=== PATIENT | female | born 1995 | race Caucasian/White ===

== ENCOUNTER 2021-02-21 10:48 | Outpatient (REF) | payer MEDICAID, SELFPAY | END 2021-02-21 10:49 | disposition home or self-care (01) | LOC: HO.HOSX 10:48 | PROVIDERS: Visit Provider Orthopaedic Surgery | DX: Z13.89 Encounter for screening for other disorder (principal) ==

== ENCOUNTER 2021-02-24 02:10 | Inpatient (IN) | payer OTHER, SELFPAY ==
[2021-02-24 02:18] VITALS: BP 103/66; PULSE 98; RESP 16; TEMP 36.3; O2SAT 99; BMI 23.6
[2021-02-24 02:43] VITALS: BP 103/66; PULSE 98; RESP 16; TEMP 36.3; O2SAT 99
[2021-02-24] MEDS: LORazepam 1 MG TABLET PO ×3 (03:05→21:34)
--- NOTE | 2021-02-24 03:08 | PC.NURSE ---
Patient reluctantly disclosed her pharmacy name but stated she doesn't take her medication, requested Ativan for anxiety, provider notified/ordered verbal order of Ativan 1 mg PO/order read back and confirmed/administered as ordered, patient appears dysregulated behavior perhaps off medication, will continue to monitor.
[2021-02-24 03:15] LABS: Glucose Urine UA NEG (NEG); Leukocyte Esterase Urine NEG (NEG); Nitrite Urine NEG (NEG); PH 6.5 (5.0-8.0); Specific Gravity - Urine 1.025 (1.005-1.025); Urine Blood NEG (NEG); Urine Ketones NEG (NEG); Urine Protein NEG (NEG-TRACE)
[2021-02-24 03:23] LABS: Appearance Urine HAZY; COVID-19 Test Negative (Negative); Color Urine YELLOW
[2021-02-24 03:24] LABS: UPreg QC Valid YES; Urine Pregnancy NEGATIVE (NEGATIVE)
[2021-02-24 03:49] LABS: Amphetamine Screen Urine Not Detected (Not Detect); Barbiturates, Urine Not Detected (Not Detect); Benzodiazepines Screen Urine Not Detected (Not Detect); Cannabinoid Screen Urine Not Detected (Not Detect); Cocaine Screen Urine Not Detected (Not Detect); Opiate Screen Urine Not Detected (Not Detect); Phencyclidine Screen Urine Not Detected (Not Detect)
[2021-02-24 04:43] LABS: Bacteria Urine 1+ /LPF; Mucus Urine 3+ /LPF; RBC Urine 0 /HPF (0); Squamous Epithelial Cell Urine 1+ /LPF
--- NOTE | 2021-02-24 04:59 | ED_ITS ---
HPI - Psych General Chief Complaint: Psychiatric Symptoms Stated Complaint: crisis Time Seen by Provider: 02/24/21 04:59 Related Data Home Medications Medication Instructions Recorded Confirmed chlorpromazine 1 tab PO BEDTIME 02/24/21 02/24/21 chlorpromazine 50 mg PO BID 02/24/21 02/24/21 diphenhydramine HCl [Banophen] 50 mg PO BEDTIME 02/24/21 02/24/21 lithium carbonate 1 tab PO BID 02/24/21 02/24/21 melatonin 1 tab PO BEDTIME 02/24/21 02/24/21 quetiapine 1 tab PO BEDTIME 02/24/21 02/24/21 quetiapine 1 tab PO BID 02/24/21 02/24/21 topiramate 1 tab PO BEDTIME 02/24/21 02/24/21 trazodone 1 tab PO BEDTIME 02/24/21 02/24/21 Allergies Allergy/AdvReac Type Severity Reaction Status Date / Time oxycodone [OXYCODONE] Allergy Severe SEIZURES Unverified 08/02/20 19:22 [facility] Social History Social History Advance Directives: No Physical Exam Vital Signs: Vital Signs: Last Vital Signs Temp 97.4 F 02/24/21 02:43 Pulse 98 02/24/21 02:43 Resp 16 02/24/21 02:43 BP 103/66 02/24/21 02:43 Pulse Ox 99 02/24/21 02:43 Body Mass Index 23.6 MDM - Psych Lab Data Labs: Lab Results 02/24/21 02/24/21 02/24/21 Range/Units 02:52 02:52 02:52 Urine Color YELLOW Urine Appearance HAZY Urine pH 6.5 (5.0-8.0) Ur Specific [place] 1.025 (1.005-1.025) Urine Protein NEG (NEG-TRACE) MG/DL Urine Glucose (UA) NEG (NEG) MG/DL Urine Ketones NEG (NEG) MG/DL Urine Blood NEG (NEG) Urine Nitrite NEG (NEG) Ur Leukocyte Esterase NEG (NEG) Urine RBC 0 (0) /HPF Urine WBC 1-4 (0-4) /HPF Ur Squamous Epith Cells 1+ /LPF Urine Bacteria 1+ /LPF Urine Mucus 3+ /LPF Urine Test NEGATIVE (NEGATIVE) Urine Opiates Screen (Not Detect) Ur Barbiturates Screen (Not Detect) Ur Phencyclidine Scrn (Not Detect) Ur Amphetamines Screen (Not Detect) U Benzodiazepines Scrn (Not Detect) Urine Cocaine Screen (Not Detect) U Marijuana (THC) Screen (Not Detect) COVID-19 (VENUS) Negative (Negative) COVID-19 Clin Com See Note 02/24/21 Range/Units 02:52 Urine Color Urine Appearance Urine pH (5.0-8.0) Ur Specific [place] (1.005-1.025) Urine Protein (NEG-TRACE) MG/DL Urine Glucose (UA) (NEG) MG/DL Urine Ketones (NEG) MG/DL Urine Blood (NEG) Urine Nitrite (NEG) Ur Leukocyte Esterase (NEG) Urine RBC (0) /HPF Urine WBC (0-4) /HPF Ur Squamous Epith Cells /LPF Urine Bacteria /LPF Urine Mucus /LPF Urine Test (NEGATIVE) Urine Opiates Screen Not Detected (Not Detect) Ur Barbiturates Screen Not Detected (Not Detect) Ur Phencyclidine Scrn Not Detected (Not Detect) Ur Amphetamines Screen Not Detected (Not Detect) U Benzodiazepines Scrn Not Detected (Not Detect) Urine Cocaine Screen Not Detected (Not Detect) U Marijuana (THC) Screen Not Detected (Not Detect) COVID-19 (VENUS) (Negative) COVID-19 Clin Com Discharge Plan Discharge Prescriptions: No Action diphenhydramine HCl [Banophen] 50 mg capsule 50 mg PO BEDTIME RF: 0 trazodone 50 mg tablet 1 tab PO BEDTIME RF: 0 chlorpromazine 100 mg tablet 1 tab PO BEDTIME RF: 0 melatonin 3 mg tablet 1 tab PO BEDTIME RF: 0 quetiapine 100 mg tablet 1 tab PO BEDTIME RF: 0 lithium carbonate 300 mg tablet 1 tab PO BID RF: 0 chlorpromazine 50 mg tablet 50 mg PO BID RF: 0 topiramate 50 mg tablet 1 tab PO BEDTIME RF: 0 quetiapine 50 mg tablet 1 tab PO BID RF: 0
--- NOTE | 2021-02-24 06:33 | ED_ITS ---
HPI - General Adult General Chief complaint: Psychiatric Symptoms <Kash Tucker MD - Last Filed: 02/24/21 15:53> Stated complaint: crisis <Kash Tucker MD - Last Filed: 02/24/21 15:53> Time Seen by Provider: 02/24/21 04:59 <Kash Tucker MD - Last Filed: 02/24/21 15:53> Source: patient and EMS <Kash Tucker MD - Last Filed: 02/24/21 15:53> Mode of arrival: EMS <Kash Tucker MD - Last Filed: 02/24/21 15:53> Limitations: no limitations <Kash Tucker MD - Last Filed: 02/24/21 15:53> History of Present Illness HPI narrative: 25-year-old female who was brought to the emergency department by EMS for psychiatric evaluation. According to EMS, the patient is well known to them and they are contacted often by the mother when the mother believes that the patient is noncompliant with her medications in leads Behavioral Health/psychiatric evaluation. According to EMS that initially take the patient to [facility] however patient wanted to come to this facility instead. The mother believes that the patient has been noncompliant with her medications. When the patient arrived, she refused to take her outpatient medications but did request Ativan to help with her anxiety. She did report that she is suicidal to the ED who nursing staff but denies that she has a plan. She denied being ill in any other way. She denied fever, chills, chest pain, shortness of breath, cough, nausea, vomiting, abdominal pain. <Kash Tucker MD - Last Filed: 02/24/21 15:53> Related Data Home medications: Home Medications Medication Instructions Recorded Confirmed albuterol sulfate [ProAir HFA] 2 puff PO Q4-6H PRN 02/24/21 02/24/21 chlorpromazine 1 tab PO BEDTIME 02/24/21 02/24/21 chlorpromazine 50 mg PO BID 02/24/21 02/24/21 diphenhydramine HCl [Banophen] 50 mg PO BEDTIME 02/24/21 02/24/21 lithium carbonate 1 tab PO BID 02/24/21 02/24/21 melatonin 1 tab PO BEDTIME 02/24/21 02/24/21 quetiapine 1 tab PO BEDTIME 02/24/21 02/24/21 quetiapine 1 tab PO BID 02/24/21 02/24/21 topiramate 1 tab PO BEDTIME 02/24/21 02/24/21 trazodone 1 tab PO BEDTIME 02/24/21 02/24/21 <Kash Tucker MD - Last Filed: 02/24/21 15:53> Allergies/adverse reactions: Allergies Allergy/AdvReac Type Severity Reaction Status Date / Time oxycodone [OXYCODONE] Allergy Severe SEIZURES Unverified 08/02/20 19:22 <Kash Tucker MD - Last Filed: 02/24/21 15:53> Review of Systems Review of Systems: Yes all other systems are reviewed and are negative <Kash Tucker MD - Last Filed: 02/24/21 15:53> [facility] Past Medical History [facility] Narrative: Patient has a history of psychiatric illness, she lives with her mother, she denies tobacco, alcohol and drug use. <Kash Tucker MD - Last Filed: 02/24/21 15:53> Social History Social History: Social History Advance Directives: No <Kash Tucker MD - Last Filed: 02/24/21 15:53> Physical Exam Vital Signs: Vital Signs: Last Vital Signs Temp 98.3 F 02/24/21 08:50 Pulse 97 02/24/21 08:50 Resp 02/24/21 14:00 BP 99/55 L 02/24/21 08:50 Pulse Ox 98 02/24/21 08:50 Body Mass Index 23.6 <Kash Tucker MD - Last Filed: 02/24/21 15:53> Vital Signs: Last Vital Signs Temp 98.3 F 02/24/21 08:50 Pulse 97 02/24/21 08:50 Resp 02/24/21 14:00 BP 99/55 L 02/24/21 08:50 Pulse Ox 98 02/24/21 08:50 Body Mass Index 23.6 <MICHELE Grover - Last Filed: 02/24/21 10:43> Const: General: cooperative <Kash Tucker MD - Last Filed: 02/24/21 15:53> Orientation/consciousness: oriented to person and oriented to place <Kash Tucker MD - Last Filed: 02/24/21 15:53> Limitations: no limitations <Kash Tucker MD - Last Filed: 02/24/21 15:53> HENMT: Head: Yes normal to inspection, Yes normocephalic and Yes atraumatic <Kash Tucker MD - Last Filed: 02/24/21 15:53> Ears: external ears normal <Kash Tucker MD - Last Filed: 02/24/21 15:53> General nose exam: Normal external nose present <Kash Tucker MD - Last Filed: 02/24/21 15:53> Face and sinus: Yes normal facial exam <Kash Tucker MD - Last Filed: 02/24/21 15:53> Mouth: Normal oral and palatal mucosa present <Kash Tucker MD - Last Filed: 02/24/21 15:53> Throat: Yes posterior oropharynx normal <Kash Tucker MD - Last Filed: 02/24/21 15:53> Eyes: Periorbital: periorbital findings normal <Kash Tucker MD - Last Filed: 02/24/21 15:53> Eyelids: Yes eyelids normal <Kash Tucker MD - Last Filed: 02/24/21 15:53> Conjunctivae: conjunctivae normal <Kash Tucker MD - Last Filed: 02/24/21 15:53> Sclerae: sclerae normal <Kash Tucker MD - Last Filed: 02/24/21 15:53> Corneas: corneas normal <Kash Tucker MD - Last Filed: 02/24/21 15:53> Pupils: Equal, round and reactive pupils present <Kash Tucker MD - Last Filed: 02/24/21 15:53> Direct Ophthalmoscopy: normal light reflex <MD El Gonsales Last Filed: 02/24/21 15:53> Neck: Neck: Yes full ROM, Yes no lymphadenopathy, Yes no meningeal signs, Yes trachea midline and Yes supple <Kash Tucker MD - Last Filed: 02/24/21 15:53> Chest: Chest palpation & inspection: normal inspection of the chest and normal palpation of entire chest wall <Kash Tucker MD - Last Filed: 02/24/21 15:53> Resp: Effort & Inspection: normal respiratory effort and able to speak in complete sentences <MD El Gonsales Last Filed: 02/24/21 15:53> Auscultation: clear to auscultation bilaterally <MD El Gonsales Last Filed: 02/24/21 15:53> Cardio: Rate: regular rate <Kash Tucker MD - Last Filed: 02/24/21 15:53> Rhythm: regular rhythm <MD El Gonsales Last Filed: 02/24/21 15:53> Heart sounds: S1 normal heart sound present, S2 normal heart sound present and no murmurs <MD El Gonsales Last Filed: 02/24/21 15:53> GI: Inspection: Yes normal to inspection <MD El Gonsales Last Filed: 02/24/21 15:53> Palpation (GI): Soft to palpation, nontender, no guarding, not rigid and No hepatosplenomegaly present <MD El Gonsales Last Filed: 02/24/21 15:53> : General: Yes no CVA tenderness <MD El Gonsales Last Filed: 02/24/21 15:53> Back/Spine/Pelvis: Back: no CVA tenderness <MD El Gonsales Last Filed: 02/24/21 15:53> Cervical Spine: normal cervical lordosis <MD El Gonsales Last Filed: 02/24/21 15:53> Thoracic/Lumbar Spine: thoracic and lumbar spine normal to inspection <MD El Gonsales Last Filed: 02/24/21 15:53> Skin: Lesions: no lesions <Kash Tucker MD - Last Filed: 02/24/21 15:53> Rashes: no rashes <Kash Tucker MD - Last Filed: 02/24/21 15:53> Wounds: no wounds <Kash Tucker MD - Last Filed: 02/24/21 15:53> Neuro: General: oriented to person, oriented to place and no meningeal signs <Kash Tucker MD - Last Filed: 02/24/21 15:53> Cranial nerves: Yes CN's II-XII intact bilaterally and Yes Equal, round and reactive pupils present <MD El Gonsales Last Filed: 02/24/21 15:53> Cognition (Neuro): normal cognition <Kash Tucker MD - Last Filed: 02/24/21 15:53> Motor exam (neuro): 5/5 motor strength present throughout <Kash Tucker MD - Last Filed: 02/24/21 15:53> Extrem: General: Yes normal to inspection and Yes full ROM <Kash oglesby MD - Last Filed: 02/24/21 15:53> Psych: Appearance: well kempt <Kash Tucker MD - Last Filed: 02/24/21 15:53> Mental Status: mental status grossly normal <Kash Tucker MD - Last Filed: 02/24/21 15:53> Speech and movement: Normal speech and movement present <MD El Gonsales Last Filed: 02/24/21 15:53> Affect: normal affect <MD El Gonsales Last Filed: 02/24/21 15:53> Attitude: cooperative <MD El Gonsales Last Filed: 02/24/21 15:53> Thought process: Normal thought process present <MD El Gonsales Last Filed: 02/24/21 15:53> Thought content: Suicidality present (Reported suicidal ideation to nursing staff, denies plan) <Kash Tucker MD - Last Filed: 02/24/21 15:53> Course Course Course Narrative: 25-year-old female with history of psychiatric illness who was brought to the emergency department by EMS for psychiatric evaluation. Patient may be noncompliant with medications. She did report suicidal ideation to the nursing staff but denied having a plan. Patient's examination was unremarkable. Patient had a urinalysis which was negative and the urine test which was negative. Urine toxicology screen was negative. Patient did receive Ativan 1 mg orally and is resting comfortably. Patient is waiting crisis evaluation. 1549: Patient's laboratory evaluation was unremarkable with negative urine tox screen,, urine , and COVID-19 test. I did order the patient's outpatient medication regimen. The patient did develop some agitation which was treated with Ativan 1 mg orally and Seroquel 50 mg orally. The patient has been evaluated by [facility] and they want to re-evaluate the patient again to determine whether the patient be discharged or whether she needs to be admitted as an inpatient. The patient will be placed in physician observation and signed out to the oncoming emergency physician Dr. Armenta. Physician observation started at 1552. Patient placed in physician observation because the patient needed more time for medication to work and to be re- evaluated BH and be evaluated for the need for psych admission. At the time observation was started the patient's vitals were stable, patient is alert and oriented., Neuro: nonfocal, CV RRR, Lungs clear. <Kash Tucker MD - Last Filed: 02/24/21 15:53> Reevaluation(s) Reevaluation #1: Physician observation initiated. No complaints overnight. Vital signs stable. Labs ordered this morning, patient is pending evaluation by [facility]. Respirations unlabored, ambulating with steady, NAD <MICHELE Grover - Last Filed: 02/24/21 10:43> Time: 10:42 <MICHELE Grover - Last Filed: 02/24/21 10:43> Medical Decision Making Lab Data Labs: Lab Results 02/24/21 02/24/21 02/24/21 Range/Units 02:52 02:52 02:52 Urine Color YELLOW Urine Appearance HAZY Urine pH 6.5 (5.0-8.0) Ur Specific [place] 1.025 (1.005-1.025) Urine Protein NEG (NEG-TRACE) MG/DL Urine Glucose (UA) NEG (NEG) MG/DL Urine Ketones NEG (NEG) MG/DL Urine Blood NEG (NEG) Urine Nitrite NEG (NEG) Ur Leukocyte Esterase NEG (NEG) Urine RBC 0 (0) /HPF Urine WBC 1-4 (0-4) /HPF Ur Squamous Epith Cells 1+ /LPF Urine Bacteria 1+ /LPF Urine Mucus 3+ /LPF Urine Test NEGATIVE (NEGATIVE) Urine Opiates Screen (Not Detect) Ur Barbiturates Screen (Not Detect) Ur Phencyclidine Scrn (Not Detect) Ur Amphetamines Screen (Not Detect) U Benzodiazepines Scrn (Not Detect) Urine Cocaine Screen (Not Detect) U Marijuana (THC) Screen (Not Detect) COVID-19 (VENUS) Negative (Negative) COVID-19 Clin Com See Note 02/24/21 Range/Units 02:52 Urine Color Urine Appearance Urine pH (5.0-8.0) Ur Specific [place] (1.005-1.025) Urine Protein (NEG-TRACE) MG/DL Urine Glucose (UA) (NEG) MG/DL Urine Ketones (NEG) MG/DL Urine Blood (NEG) Urine Nitrite (NEG) Ur Leukocyte Esterase (NEG) Urine RBC (0) /HPF Urine WBC (0-4) /HPF Ur Squamous Epith Cells /LPF Urine Bacteria /LPF Urine Mucus /LPF Urine Test (NEGATIVE) Urine Opiates Screen Not Detected (Not Detect) Ur Barbiturates Screen Not Detected (Not Detect) Ur Phencyclidine Scrn Not Detected (Not Detect) Ur Amphetamines Screen Not Detected (Not Detect) U Benzodiazepines Scrn Not Detected (Not Detect) Urine Cocaine Screen Not Detected (Not Detect) U Marijuana (THC) Screen Not Detected (Not Detect) COVID-19 (VENUS) (Negative) COVID-19 Clin Com <Kash Tucker MD - Last Filed: 02/24/21 15:53> Lab Results 02/24/21 02/24/21 02/24/21 Range/Units 02:52 02:52 02:52 Urine Color YELLOW Urine Appearance HAZY Urine pH 6.5 (5.0-8.0) Ur Specific [place] 1.025 (1.005-1.025) Urine Protein NEG (NEG-TRACE) MG/DL Urine Glucose (UA) NEG (NEG) MG/DL Urine Ketones NEG (NEG) MG/DL Urine Blood NEG (NEG) Urine Nitrite NEG (NEG) Ur Leukocyte Esterase NEG (NEG) Urine RBC 0 (0) /HPF Urine WBC 1-4 (0-4) /HPF Ur Squamous Epith Cells 1+ /LPF Urine Bacteria 1+ /LPF Urine Mucus 3+ /LPF Urine Test NEGATIVE (NEGATIVE) Urine Opiates Screen (Not Detect) Ur Barbiturates Screen (Not Detect) Ur Phencyclidine Scrn (Not Detect) Ur Amphetamines Screen (Not Detect) U Benzodiazepines Scrn (Not Detect) Urine Cocaine Screen (Not Detect) U Marijuana (THC) Screen (Not Detect) COVID-19 (VENUS) Negative (Negative) COVID-[employer] Com See Note 02/24/21 Range/Units 02:52 Urine Color Urine Appearance Urine pH (5.0-8.0) Ur Specific [place] (1.005-1.025) Urine Protein (NEG-TRACE) MG/DL Urine Glucose (UA) (NEG) MG/DL Urine Ketones (NEG) MG/DL Urine Blood (NEG) Urine Nitrite (NEG) Ur Leukocyte Esterase (NEG) Urine RBC (0) /HPF Urine WBC (0-4) /HPF Ur Squamous Epith Cells /LPF Urine Bacteria /LPF Urine Mucus /LPF Urine Test (NEGATIVE) Urine Opiates Screen Not Detected (Not Detect) Ur Barbiturates Screen Not Detected (Not Detect) Ur Phencyclidine Scrn Not Detected (Not Detect) Ur Amphetamines Screen Not Detected (Not Detect) U Benzodiazepines Scrn Not Detected (Not Detect) Urine Cocaine Screen Not Detected (Not Detect) U Marijuana (THC) Screen Not Detected (Not Detect) COVID-19 (VENUS) (Negative) COVID-[employer] <MICHELE Grover - Last Filed: 02/24/21 10:43> Discharge Plan Discharge Prescriptions: No Action diphenhydramine HCl [Banophen] 50 mg capsule 50 mg PO BEDTIME RF: 0 trazodone 50 mg tablet 1 tab PO BEDTIME RF: 0 chlorpromazine 100 mg tablet 1 tab PO BEDTIME RF: 0 melatonin 3 mg tablet 1 tab PO BEDTIME RF: 0 quetiapine 100 mg tablet 1 tab PO BEDTIME RF: 0 lithium carbonate 300 mg tablet 1 tab PO BID RF: 0 chlorpromazine 50 mg tablet 50 mg PO BID RF: 0 topiramate 50 mg tablet 1 tab PO BEDTIME RF: 0 quetiapine 50 mg tablet 1 tab PO BID RF: 0 albuterol sulfate [ProAir HFA] 90 mcg/actuation HFA aerosol inhaler 2 puff PO Q4-6H PRN (Reason: wheezing) RF: 0 <Kash Tucker MD - Last Filed: 02/24/21 15:53>
--- NOTE | 2021-02-24 07:28 | PC.NURSE ---
Report received from KARLA Granados. Pt resting, resp unlabored.
--- NOTE | 2021-02-24 08:05 | PC.NURSE ---
Pt awake, reports feeling very anxious, requesting medication. Pt states that she does not want to take her regularly scheduled medications because they cause side effects: she declines to take Thorazine or Seroquel because of side effects. Denies AH or VH. Discussed situation w/ Dr. Lees.
--- NOTE | 2021-02-24 08:21 | PC.NURSE ---
Dr. Ralph in to evaluate.
[2021-02-24 08:50] VITALS: BP 99/55; PULSE 97; RESP 15; TEMP 36.8; O2SAT 98
--- NOTE | 2021-02-24 08:57 | PC.NURSE ---
Patient reports feeling anxious. Offered medication however declined.
[2021-02-24] MEDS: QUEtiapine Fumarate 50 MG TABLET PO ×2 (10:28→21:34)
--- NOTE | 2021-02-24 10:29 | PC.NURSE ---
Pt increasingly intrusive, demanding ativan, frequently approaching the nurse's station requesting food and drink multiple times despite receiving both frequently. Pt aware that MD requesting that she accept regular medications before receiving ativan. Pt declined either thorazine or seroquel frequently, but now, accepted seroquel. Chaparrita salgado aware, also aware that Ativan order must be re-enter as pt refused earlier. Pt accepted ativan and seroquel.
--- NOTE | 2021-02-24 11:58 | PC.NURSE ---
Pt resting, resp unlabored.
--- NOTE | 2021-02-24 13:05 | PC.NURSE ---
Pt seen by Kameron. Pt drowsy, assisted to bathroom.
--- NOTE | 2021-02-24 13:10 | PC.NURSE ---
[facility] in to evaluate
[2021-02-24 14:00] VITALS: RESP 20
--- NOTE | 2021-02-24 14:11 | PC.NURSE ---
Patient currently sleeping. Respirations even and unlabored.
--- NOTE | 2021-02-24 16:12 | PC.NURSE ---
Patient sleeping at this time. Respirations even and unlabored. No distress observed.
--- NOTE | 2021-02-24 16:59 | PC.NURSE ---
Pt resting, resp unlabored.
--- NOTE | 2021-02-24 17:59 | PC.NURSE ---
Patient currently sleeping. Respirations even and unlabored. No distress observed.
--- NOTE | 2021-02-24 18:27 | PC.NURSE ---
Pt awake briefly, requesting ativan, now resting again, resp unlabored.
[2021-02-24 21:23] VITALS: BP 96/55; PULSE 67; RESP 16; TEMP 36.3; O2SAT 96
[2021-02-24] MEDS: QUEtiapine Fumarate 100 MG TABLET PO (21:34)
--- NOTE | 2021-02-24 22:20 | PC.NURSE ---
Patient slept whole evening, woken up for HS medication and [facility] assessment, patient refused to take her medication and requested for Ativan, when encouraged to take her medication patient agreed to take Seroquel provider notified/ordered Ativan 1 mg administered with seroquel 150 mg, patient accepted, no distress reported at this time, will continue to monitor.
--- NOTE | 2021-02-25 06:54 | PC.NURSE ---
Report recieved. PT currently sleeping, respirations even and unlabored, in no apparent distress. PT to be re-evaluated by N.
[2021-02-25] MEDS: QUEtiapine Fumarate 50 MG TABLET PO ×2 (08:11→22:18)
[2021-02-25] MEDS: LORazepam 1 MG TABLET 2 MG PO ×2 (08:11→22:18)
[2021-02-25 09:39] VITALS: BP 111/61; PULSE 101; RESP 15; TEMP 36.9; O2SAT 99
--- NOTE | 2021-02-25 11:34 | PC.NURSE ---
PT asking how she can stop her mother from talking to her telepathically. PT states she used to live with her mother but was kicked out and now her mother keeps trying to contact her, PT tearful. Verbal reassurance given, pt offered medication, states she is willing to take medication at this time.
[2021-02-25] MEDS: HaloperidoL 5 MG TABLET PO (11:42)
[2021-02-25] MEDS: LORazepam 1 MG TABLET PO (11:42)
[2021-02-25 16:09] VITALS: BP 103/57; PULSE 82; RESP 16; TEMP 36.8; O2SAT 98
--- NOTE | 2021-02-25 19:07 | PC.NURSE ---
Report received. PT is sleeping in bed. Respirations even and unlabored. PT is DOMINIQUE follow-up.
[2021-02-25] MEDS: QUEtiapine Fumarate 100 MG TABLET PO (22:18)
--- NOTE | 2021-02-25 23:54 | MHC.CARE ---
[facility] attempted to complete evaluation with pt on Saturday 02/24 around 1pm, however pt was drowsy and wouldn't participate in the assessment. N reported that they left a message for pt's mother, and it was determined that pt would be an DOMINIQUE follow up to attempt assessment at a later time. CARE team contacted [facility] calender supervisor on 02/25 around 6pm re: pt who has been boarding in ED awaiting re-eval. [facility] calender supervisor reported that they don't have any clinicians available and it was discussed that CARE team would take over the evaluation. [facility] calender supervisor reported that they still hadn't received a call back from pt's mother after the initial message they left. This policy writer reviewed pt's chart and documentation from admisison in October 2019. Attempted to call pt's mother, Serap [phone] and left a message. This policy writer attempted to meet with pt, however pt was in bed and did not respond verbal stimuli. This policy writer attempted again while pt's vitals were being taken by ERT. Pt briefly opened her eyes to look at this policy writer before shutting them tight with her eyebrows furrowed and scowling. Pt reported that she is here because her mother is crazy and won't leave her alone then called for an ambulance, not providing any other information or insight. Pt pulled the blankets over her head and rolled over to face the opposite direction of this policy writer. Pt reported that she hasn't been taking her medications since she left the [facility] because of the side effects, and has been accepting only seroquel while in the hospital so far. This policy writer inquired as to whether pt has been working with providers at [facility] that she had been scheduled appointments with following discharge from in Nov 03Dec 05, which pt stated I called and I called and I called and then paused abruptly before saying I'm done talking with you. This policy writer acknowledged pt's request and asked if she could answer one more question, which pt responded to by shouting LEAVE ME ALONE. Due to ongoing difficulty with assessing pt and gathering collateral information from her mother, this policy writer contacted [facility] calender supervisor to return responsibility of the assessment to them.
[2021-02-26] VITALS: BP 90/42; PULSE 79; RESP 16; TEMP 36.1; O2SAT 96
--- NOTE | 2021-02-26 07:08 | PC.NURSE ---
Report received. PT currently resting, in no apparent distress. PT waiting for N follow up eval.
--- NOTE | 2021-02-26 07:57 | PC.NURSE ---
[facility] up - no clinician available until after 12 today.
[2021-02-26 08:54] VITALS: BP 94/48; PULSE 88; RESP 16; O2SAT 95
--- NOTE | 2021-02-26 10:19 | PM.PSYCN ---
History of Present Illness Date of Service: 02/26/21 Chief Complaint: crisis Reason for Consult: medication management Discussed with referring provider: Yes Sources of Information: patient interviewed, chart reviewed and crisis/core team assessment reviewed [facility] Narrative: Pt somewhat limited historian; moderately disorganized in speech with thought blocking and long periods of silence and periods of staring at selling underwriter. Per nursing, pt has reported history of psychotic symptoms and possible hx of jasmyn Pt reports she's not sure why she's here. At first she says my mother has been harassing me...she closes off the TV while i'm watching it...i think she does it to annoy me. Train Operations Manager asked if this was upsetting; pt said no but then said her mother called the fire control system installer though she's not sure why. Patient reports she does not know why she's on medications such as psychotropics and she says lithium is gross; she thinks topimax is for seizures or migraines but she does not want it. Staff reports she has been refusing Thorazine (and lithium) and will only take the scheduled Seroquel if given prn Ativan 2mg with it. Pt says all she wants is Ativan since it calms her down [when she] feel[s] like stabbing my arms off... Train Operations Manager discussed risks of continuing Ativan which pt had some trouble accepting and even stood up during discussion, and with increased volume and irritable affect said she has no hx of addiction and should be able to take ativan (including 2mg several times a day); on further discussion, she calmed down and agreed to lowering dose (was ordered ativan 2mg q6h prn on admission) and trying Seroquel first since she reports Seroquel also calms her down and does not make her tired. Pt also agrees to increasing scheduled dose at bedtime. She denies depression or suicidal thoughts; she denies being angry; she also denies AVH (though nursing staff reports pt c/o hearing mothers voice through telepathy ) but says she used to hear voices but not anymore, that they stopped awhile ago, though she does not know why and does not attribute this to medications. Pt says i just want to go home... but that her mother will not answer her calls. Pt gave staff verbal permission to contact her mother and discuss case. Later on, she asked why she had to take seroquel before getting ativan; selling underwriter explained it to patient again; as soon as selling underwriter was done, patient turned to nurse sitting next to selling underwriter and asked her the same question. Diagnostics Vital Signs (24Hr): Vital Signs - 24 hr 02/25/21 16:09 02/26/21 00:00 02/26/21 08:54 Temperature 98.2 F 96.9 F Pulse Rate 82 79 88 Respiratory Rate 16 16 16 Blood Pressure 103/57 L 90/42 L 94/48 L Pulse Oximetry 98 96 95 Body Mass Index 23.6 Mental Status Exam Mental Status Exam Patient Appearance: Appropriate Patient Orientation: Person and Place Level of Consciousness: Awake Patient Behavior: Guarded, Cooperative and Confused Mood Description: Calm and Constricted Affect Description: Constricted Ability to Follow Directions: Fair Speech Pattern: Clear, Delayed and Long Pauses Hallucinations: None (denies) Delusions: Thought Insert/Delete (reports mother contacting her through telepathy) Thought Content: positive for Disoriented (will ask the same question twice) and positive for Thought Blocking Depressive Symptoms: Increased Irritability Abnormal Motor Activity Signs and Symptoms: Restlessness Judgement: Poor Judgement and Insight: impaired Medications Medications Current Medications Generic Name Dose Route Start Last Admin Trade Name Milesq PRN Reason Stop Dose Admin Albuterol Sulfate 2 puff 02/24/21 08:30 Albuterol Sulfate 90 Mcg 8 Gm Inhaler INHALE Q4H PRN wheezing Diphenhydramine HCl 50 mg 02/24/21 21:00 02/25/21 22:19 Diphenhydramine Hcl 25 Mg Tablet PO Not Given BEDTIME ANGELITA Lorazepam 1 mg 02/26/21 10:14 Lorazepam 1 Mg Tablet PO BID PRN anxiety/agitation Melatonin 3 mg 02/24/21 21:00 02/25/21 22:20 Melatonin 3 Mg Tablet PO Not Given BEDTIME ANGELITA Quetiapine Fumarate 300 mg 02/26/21 21:00 Quetiapine Fumarate 50 Mg Tablet PO BEDTIME ANGELITA Quetiapine Fumarate 50 mg 02/26/21 10:07 Quetiapine Fumarate 50 Mg Tablet PO DAILY ANGELITA Quetiapine Fumarate 50 mg 02/26/21 10:08 Quetiapine Fumarate 50 Mg Tablet PO TID PRN anxiety/agitation Topiramate 50 mg 02/24/21 21:00 02/25/21 22:20 Topiramate 25 Mg Tablet PO Not Given BEDTIME ANGELITA Trazodone HCl 50 mg 02/26/21 10:14 Trazodone Hcl 50 Mg Tablet PO BEDTIME PRN insomnia Allergies Allergies Allergy/AdvReac Type Severity Reaction Status Date / Time oxycodone [OXYCODONE] Allergy Severe SEIZURES Unverified 08/02/20 19:22 Assessment & Plan Pt is a 25 yo female with reported hx of psychosis, possibly jasmyn and past psychiatric inpatient admissions, who presents after her mother called the fire control system installer on patient in face of non-adherence with medication. Pt is a limited historian; she lacks insight into psychiatric symptoms/illness, why she's in ED or why she's been prescribed psychotropic medications in the past. Pt is moderately disorganized in speech and behavior; her thinking can be linear at times, but is troubled by thought blocking; she appears intermittently internally preoccupied and has reported AH. Pt refuses Thorazine and [place], however she agrees to take Sequel at increased dose and as a prn; pt is also focused on getting Ativan which was prescribed on admission, but accepts a decreased dose. [facility] is covering patient but has not yet decided whether to initiate bed search. Pt has given verbal permission for staff to contact her mother and discuss case DX: Psychotic disorder, unspecified r/o schizoaffective vs schizophrenia Plan: -will dc lithium/thorazine since pt refuses -will increase Seroquel to 300mg qhs (Though slightly accelerated titration, current home dose is too low to address psychotic symptoms or jasmyn; she has been prescribed this medication and though was recently choosing not to take it, reports she tolerates it well w/out side-effects. -Adding Seroquel 50mg prn for anxiety/agitation to be taken before Ativan -Will lower ativan to 1mg BID prn (down from 2mg q6h prn ordered on admission); pt is very fixated on getting this med asking numerous times how long she has to wait after taking serquel before she can get it; she is not prescribed this med as outpt, though in the past has been prescribed Diazepam; selling underwriter would like to avoid this medication as it is addictive. However, pt agrees to take Antipsychotic med if ativan remains available, making adherence with Seroquel worth continuing ativan as a prn for now. That said, selling underwriter does NOT recommend Ativan or benzo's to be continued upon discharge; overall goal is for patients symptoms to be taken care of by Serqouel. -pt refuses Topimax; not sure what prescribed for; pt says either seizures or migraines. Train Operations Manager tried to persuade pt to continue with this med for given reasons; though pt refused, selling underwriter explained med will remain scheduled incase pt changes her mind Greater than 50% of the session was spent on counseling and/or coordination of care Patient educated on: medication risk/benefits, substance abuse and therapeutic strategies
[2021-02-26] MEDS: QUEtiapine Fumarate 50 MG TABLET PO ×3 (10:40→16:35)
[2021-02-26] MEDS: LORazepam 1 MG TABLET PO ×2 (11:32→20:39)
--- NOTE | 2021-02-26 12:52 | PC.NURSE ---
PT reporting anxiety, has already taken PRN medication for anxiety and reports it was ineffective. Provider notified, verbal reassurance given. Pt labile, crying and then laughing. PT redirected, given warm blankets.
--- NOTE | 2021-02-26 16:25 | PC.NURSE ---
PT tearful, requesting ativan, pt offered seroquel, pt refused seroquel states she only wants ativan or xanax. Explained that ativan is not available at this time, pt continues to request medication and refuse seroquel. Provider aware.
--- NOTE | 2021-02-26 17:23 | PC.NURSE ---
PT labile in conversation, currently listening to music, became agitated and began yelling in an unknown language at this RN then laughing and smiling requesting coffee. PT able to maintain behavioral control at this time.
--- NOTE | 2021-02-26 19:52 | PC.NURSE ---
Report received. PT is asking to use the shower. Agitated because another PT was using the shower at the same time she asked to go in. PT able to maintain behavioral control. PT is inpatient bed search.
[2021-02-26] MEDS: QUEtiapine Fumarate 50 MG TABLET 300 MG PO (20:39)
[2021-02-26] MEDS: Topiramate 25 MG TABLET 50 MG PO (20:40)
[2021-02-26 20:46] VITALS: BP 119/77; PULSE 108; RESP 15; TEMP 36.2; O2SAT 100
[2021-02-26 23:30] VITALS: BP 124/70; PULSE 123
[2021-02-26] MEDS: cloNIDine HCL 0.1 MG TABLET PO (23:30)
[2021-02-26 23:45] VITALS: BP 124/70; PULSE 123; RESP 20; TEMP 36.3; O2SAT 98
[2021-02-27] VITALS (8 sets, daily range): BP systolic 93–118; BP diastolic 51–72; PULSE 83–128; RESP 16–17; TEMP 36.6; O2SAT 97–100
[2021-02-27] MEDS: LORazepam 1 MG TABLET PO ×2 (02:57→17:16)
--- NOTE | 2021-02-27 03:01 | PC.NURSE ---
Patient restless, pacing, requesting medication for sleep, refused her Trazodone and Seroquel, provider notified/ordered Clonidine 0.1 mg/not administered d/t low BP, PRN Ativan 1 mg administered as ordered, pending effect, will continue to monitor.
[2021-02-27] MEDS: QUEtiapine Fumarate 50 MG TABLET PO ×3 (08:33→21:24)
--- NOTE | 2021-02-27 08:36 | PC.NURSE ---
pt a/o x 3 no sob/nadia noted skin pink warm dry speaks in full sentences. amb (i) gait steady. pt is pacing hallways and is stating that she is anxious. pt is requesting ativan or clonidine for anxiety. mlp aware.
--- NOTE | 2021-02-27 10:14 | PC.NURSE ---
0944 - pt c/o anxiety, med x 1 with seroquel 50mg po x 1 at 0944. pt seen has requested multiply times to be d/c'd home, continues to request ativan or clonodine for anxiety. mlp (sweta) aware.
--- NOTE | 2021-02-27 13:50 | PC.NURSE ---
nurse to nurse given to rachel (rn) on m[facility], pt aware of plan of care for admission to [facility].
--- NOTE | 2021-02-27 14:46 | PM.PSYCN ---
History of Present Illness Date of Service: 02/27/21 Chief Complaint: Bipolar Disorder Reason for Consult: follow up from 02/26/21 consult Pt calm on approach; she says she's fine and that she slept well last night, though needed both clonidine and ativan. Pt denied side-effects from increased Seroquel dose. She remains focused on getting Ativan. Pt had little else to say. Diagnostics Vital Signs (24Hr): Vital Signs - 24 hr 02/26/21 20:46 02/26/21 23:30 02/26/21 23:45 Temperature 97.2 F 97.3 F Pulse Rate 108 H 123 H 123 H Respiratory Rate 15 20 Blood Pressure 119/77 124/70 124/70 Pulse Oximetry 100 98 02/27/21 02:58 02/27/21 02:59 02/27/21 08:09 Temperature 97.8 F 97.9 F Pulse Rate 128 H 128 H 121 H Respiratory Rate 16 17 Blood Pressure 96/51 L 96/51 L 103/61 Pulse Oximetry 100 97 02/27/21 10:33 02/27/21 10:50 02/27/21 13:02 Temperature Pulse Rate 97 Respiratory Rate 16 Blood Pressure 100/72 93/59 L Pulse Oximetry 99 100 02/27/21 14:38 Temperature Pulse Rate 83 Respiratory Rate Blood Pressure 94/53 L Pulse Oximetry 98 Body Mass Index 23.6 Medications Medications Current Medications Generic Name Dose Route Start Last Admin Trade Name Freq PRN Reason Stop Dose Admin Albuterol Sulfate 2 puff 02/24/21 08:30 Albuterol Sulfate 90 Mcg 8 Gm Inhaler INHALE Q4H PRN wheezing Lorazepam 1 mg 02/26/21 10:14 02/27/21 02:57 Lorazepam 1 Mg Tablet PO 1 mg BID PRN Administration anxiety/agitation Quetiapine Fumarate 300 mg 02/26/21 21:00 02/26/21 20:39 Quetiapine Fumarate 50 Mg Tablet PO 300 mg BEDTIME ANGELITA Administration Quetiapine Fumarate 50 mg 02/26/21 10:07 02/27/21 08:33 Quetiapine Fumarate 50 Mg Tablet PO 50 mg DAILY ANGELITA Administration Topiramate 50 mg 02/24/21 21:00 02/26/21 20:40 Topiramate 25 Mg Tablet PO 50 mg BEDTIME ANGELITA Administration Allergies Allergies Allergy/AdvReac Type Severity Reaction Status Date / Time oxycodone [OXYCODONE] Allergy Severe SEIZURES Unverified 08/02/20 19:22 Assessment & Plan Plan: continue current tx plan; no changes
--- NOTE | 2021-02-27 15:34 | PC.NURSE ---
Report received. Pt pacing in the common area. I want to be transferred to [facility] so I log into my facebook . Awaiting transfer to .
--- NOTE | 2021-02-27 15:55 | ECG_ITS ---
Test Reason : MEDICAL CLEARANCE Blood Pressure : / mmHG Vent. Rate : 087 BPM Atrial Rate : 087 BPM P-R Int : 152 ms QRS Dur : 076 ms QT Int : 372 ms P-R-T Axes : 068 064 061 degrees QTc Int : 447 ms Normal sinus rhythm Possible Left atrial enlargement Borderline ECG When compared with ECG of 04-NOV-2019 16:18, No significant change was found Referred By: José De La O Electronically Signed By:MADELINE ESTRADA
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
[2021-02-27] MEDS: QUEtiapine Fumarate 50 MG TABLET 300 MG PO (20:09)
[2021-02-27] MEDS: Topiramate 25 MG TABLET 50 MG PO (20:10)
[2021-02-27] MEDS: traZODone HCL 50 MG TABLET PO (21:25)
[2021-02-27] MEDS: hydrOXYzine HCL 25 MG TABLET PO (21:25)
[2021-02-28] MEDS: QUEtiapine Fumarate 50 MG TABLET PO ×4 (04:41→18:05)
[2021-02-28 06:20] VITALS: BP 108/59; PULSE 84; RESP 18; TEMP 36.8; O2SAT 99
[2021-02-28] MEDS: LORazepam 1 MG TABLET PO ×2 (09:13→13:43)
[2021-02-28 09:14] LABS: Estimated Average Glucose 80 mg/dL; Hemoglobin A1c % 4.4 %
[2021-02-28 09:28] LABS: Cholesterol 167 mg/dL; HDL Cholesterol 45 mg/dL; LDL Cholesterol Calculated 102 mg/dl; Triglycerides 104 mg/dL
[2021-02-28 09:48] LABS: Free T4 (Free Thyroxine) 0.77 ng/dL (0.71-1.85); Thyroid Stimulating Hormone 1.08 uIU/mL (0.32-4.0)
[2021-02-28 10:34] LABS: Folate 6.8 ng/mL (> or = 4.0); Vitamin B12 250 pg/mL (200-900)
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
[2021-02-28] MEDS: HaloperidoL 5 MG TABLET PO (15:58)
[2021-02-28 18:00] VITALS: BP 102/63; PULSE 112; TEMP 36.8
[2021-02-28] MEDS: OXcarbazepine 300 MG TABLET PO (19:29)
[2021-02-28 19:30] VITALS: BP 102/63; PULSE 112
[2021-02-28] MEDS: HaloperidoL 1 MG TABLET 2 MG PO (19:30)
[2021-02-28] MEDS: Topiramate 25 MG TABLET 50 MG PO (19:30)
[2021-02-28] MEDS: cloNIDine HCL 0.1 MG TABLET PO (19:30)
[2021-02-28] MEDS: QUEtiapine Fumarate 50 MG TABLET 300 MG PO (19:31)
[2021-03-01] MEDS: HaloperidoL 1 MG TABLET 2 MG PO (08:58)
[2021-03-01] MEDS: QUEtiapine Fumarate 50 MG TABLET PO ×2 (08:58→15:05)
[2021-03-01 09:09] VITALS: BP 108/58; PULSE 110
[2021-03-01] MEDS: cloNIDine HCL 0.1 MG TABLET PO ×2 (09:09→20:02)
[2021-03-01] MEDS: LORazepam 1 MG TABLET PO ×2 (12:03→18:30)
--- NOTE | 2021-03-01 15:03 | PC.NURSE ---
Pt retracted 3-day notice. , social work, Elizabeth monique.
[2021-03-01] MEDS: HaloperidoL 5 MG TABLET PO ×2 (15:05→18:26)
[2021-03-01 18:00] VITALS: BP 107/63; PULSE 95; RESP 14; TEMP 36.7; O2SAT 97
--- NOTE | 2021-03-01 18:27 | P.PNPSI_ITS ---
Subjective Subjective Date of Service: 03/01/21 Reason For Visit: Bipolar Disorder Subjective Notes: Conditional Voluntary and 3 Day Interim History: Considering retraction of three day notice. Discussed medication regime-Trileptal not helpful-causing nausea/headache, will discontinue Haldol is [id number] titrate. Pt continues to be med seeking Ready to begin to care for her physical health- will begin with [facility]. She agrees. Today, finds milieu helpful and supportive along with the team. Struggling with mood lability, anger with mom while feeling abandoned by mom, auditory perceptual alterations, and team observes thought blocking periods. Medication Compliance: Yes Side effects from medications: No Attending Groups: No Review of Systems Review of Systems Yes all other systems are reviewed and are negative (pt denies) Reports behavioral changes Psychiatric: Reports anxiety, Reports behavioral changes, Reports difficulty concentrating, Reports auditory hallucinations, Reports hopelessness, Reports irritability, Reports anhedonia, Reports mood swings, Reports paranoia, Reports hallucinations and Reports suicidal ideation Mental Status Exam Mental Status Exam Patient Appearance: Appropriate Patient Orientation: Person, Place and Time Level of Consciousness: Alert Patient Behavior: Guarded, Talkative, Cooperative, Fearful, Avoidant, Fatigued, Distractible, Isolative, Good Eye Contact and Poor Eye Contact Mood Description: Labile Affect Description: Labile Patient Cognition Impaired: Yes Ability to Follow Directions: Fair Speech Pattern: Perseverating and Spontaneous Speech Memory Description: Remote Impaired and Episodic Impaired Hallucinations: Auditory Delusions: Paranoid Ideation and Present Thought Process: Illogical, Distracted and Rumination Thought Content: positive for Obsessional Thoughts, positive for Circumstantial, positive for Preoccupation, positive for Thought Blocking, positive for Suicidal Ideation and positive for Homicidal Ideation (denies) Depressive Symptoms: Increased Anxiety, Increased Irritability, Feelings of Worthlessness, Hopelessness, Unhappiness, Increased Fatigue, Thoughts of /Suicide, Low Self Esteem, Loss of Energy and Difficulty Concentrating Judgement: Poor Diagnostics Vital Signs (24Hr): Vital Signs - 24 hr 02/28/21 19:30 03/01/21 09:09 03/01/21 18:00 Temperature 98.1 F Pulse Rate 112 H 110 H 95 Respiratory Rate 14 Blood Pressure 102/63 108/58 L 107/63 Pulse Oximetry 97 Body Mass Index 23.6 Labs Labs: Laboratory Results - last 48 hr 02/28/21 02/28/2102/28/21 08:43 08:43 08:43 Estimat Average Glucose 80 Hemoglobin A1c % 4.4 Triglycerides 104 Cholesterol 167 LDL Cholesterol, Calc 102 HDL Cholesterol 45 Vitamin B12 250 Folate 6.8 TSH 1.08 Free T4 0.77 Medications Medications Current Medications Generic Name Dose Route Start Last Admin Trade Name Freq PRN Reason Stop Dose Admin Acetaminophen 650 mg 02/27/21 15:26 Acetaminophen 325 Mg Tablet PO Q6H PRN Headache/Pain Mild Scale (1-3) Al Hydroxide/Mg Hydroxide 30 ml 02/27/21 15:26 Magnesium Hydrox/Alum Hydrox 30 Ml Oral.Susp PO Q6H PRN Heartburn/Nausea Albuterol Sulfate 2 puff 02/24/21 08:30 Albuterol Sulfate 90 Mcg 8 Gm Inhaler INHALE Q4H PRN wheezing Clonidine HCl 0.1 mg 02/28/21 21:00 03/01/21 09:09 Clonidine Hcl 0.1 Mg Tablet PO 0.1 mg BID ANGELITA Administration Protocol Haloperidol 5 mg 02/28/21 15:20 03/01/21 15:05 Haloperidol 5 Mg Tablet PO 5 mg TID PRN Administration auditory perceptual alteration Haloperidol 5 mg 03/01/21 21:00 Haloperidol 5 Mg Tablet PO BID ANGELITA Hydroxyzine HCl 25 mg 02/27/21 15:26 02/27/21 21:25 Hydroxyzine Hcl 25 Mg Tablet PO 25 mg BEDTIME PRN Administration Anxiety Lorazepam 1 mg 02/26/21 10:14 03/01/21 12:03 Lorazepam 1 Mg Tablet PO 1 mg BID PRN Administration anxiety/agitation Magnesium Hydroxide 30 ml 02/27/21 15:26 Milk Of Magnesia 30 Ml Oral.Susp PO DAILY PRN Constipation Oxcarbazepine 300 mg 02/28/21 21:00 03/01/21 08:59 Oxcarbazepine 300 Mg Tablet PO Not Given BID ANGELITA Quetiapine Fumarate 300 mg 02/26/21 21:00 02/28/21 19:31 Quetiapine Fumarate 50 Mg Tablet PO 300 mg BEDTIME ANGELITA Administration Quetiapine Fumarate 50 mg 02/26/21 10:07 03/01/21 08:58 Quetiapine Fumarate 50 Mg Tablet PO 50 mg DAILY ANGELITA Administration Quetiapine Fumarate 50 mg 02/27/21 16:44 03/01/21 15:05 Quetiapine Fumarate 50 Mg Tablet PO 50 mg BID PRN Administration agitation Topiramate 50 mg 02/24/21 21:00 02/28/21 19:30 Topiramate 25 Mg Tablet PO 50 mg BEDTIME ANGLEITA Administration Trazodone HCl 50 mg 02/27/21 15:26 02/27/21 21:25 Trazodone Hcl 50 Mg Tablet PO 50 mg BEDTIME PRN Administration Insomnia Allergies Allergies Allergy/AdvReac Type Severity Reaction Status Date / Time oxycodone [OXYCODONE] Allergy Severe SEIZURES Unverified 08/02/20 19:22 Assessment & Plan Assessment & Plan (1) Schizoaffective disorder, bipolar type: Status: Acute Code(s): F25.0 - Schizoaffective disorder, bipolar type Assessment and Plan: Brief, calmer discussion today-pt is engaging and attempting to work with team- experiencing perceptual alterations and thought blocking-anger with mother and feeling abandoned by mother she reports. We agreed to the following. Seroquel 300 mg HS, 50 mg qd and 50 mg bid prn- to target lability of mood and thought clarity Increase Haldol to 5 mg bid and 5 mg tid prn Clonidine 0.1 mg bid- to target anxiety and agitation Lorazepam 1 mg bid prn- to target anxiety and agitation Discontinue Trileptal-experienced nausea and headache Continue Topamax and Trazodone MVI Greater than 50% of the session was spent on counseling and/or coordination of care Reason for contiued inpatient stay Substantial Risk for: harm to self, harm to others, inability to function and ra pid decompensation
[2021-03-01] MEDS: Topiramate 25 MG TABLET 50 MG PO (20:01)
[2021-03-01 20:02] VITALS: BP 107/63; PULSE 95
[2021-03-01] MEDS: QUEtiapine Fumarate 50 MG TABLET 300 MG PO (20:02)
[2021-03-02] MEDS: traZODone HCL 50 MG TABLET PO (00:42)
[2021-03-02] MEDS: hydrOXYzine HCL 25 MG TABLET PO (00:42)
[2021-03-02 10:22] VITALS: BP 109/53; PULSE 72
[2021-03-02] MEDS: QUEtiapine Fumarate 50 MG TABLET PO ×2 (10:22→16:46)
[2021-03-02] MEDS: cloNIDine HCL 0.1 MG TABLET PO ×2 (10:22→20:53)
[2021-03-02] MEDS: HaloperidoL 5 MG TABLET PO ×2 (10:22→20:52)
[2021-03-02 17:15] VITALS: BP 112/57; PULSE 87; TEMP 36.7
[2021-03-02] MEDS: LORazepam 1 MG TABLET PO (17:50)
--- NOTE | 2021-03-02 19:52 | HO.PSYCHPN ---
Subjective Subjective Date of Service: 03/02/21 Reason For Visit: Bipolar Disorder Subjective Notes: Conditional Voluntary Interim History: Reports she would like to stop Trileptal as it is not helpful. Current regime she finds to be helpful however lability persists. Calm on the unit with some irritability and lability noted. Medication Compliance: Yes Side effects from medications: No Attending Groups: No Review of Systems Review of Systems Yes all other systems are reviewed and are negative (denies) Reports behavioral changes Psychiatric: Reports behavioral changes, Reports depression, Reports irritability, Reports mood swings and Reports suicidal ideation Mental Status Exam Mental Status Exam Patient Appearance: Appropriate Patient Orientation: Person and Place Level of Consciousness: Alert Patient Behavior: Talkative Mood Description: Withdrawn and Labile Affect Description: Labile Patient Cognition Impaired: No Ability to Follow Directions: Good Speech Pattern: Spontaneous Speech Memory Description: Episodic Impaired Hallucinations: None (denies) Delusions: Present Thought Process: Distracted Thought Content: positive for [place] and positive for Circumstantial Depressive Symptoms: Thoughts of /Suicide Abnormal Motor Activity Signs and Symptoms: Restlessness (at times she reports) Judgement: Fair Diagnostics Vital Signs (24Hr): Vital Signs - 24 hr 03/01/21 20:02 03/02/21 10:22 03/02/21 17:15 Temperature 98.0 F Pulse Rate 95 72 87 Blood Pressure 107/63 109/53 L 112/57 L Body Mass Index 23.6 Medications Medications Current Medications Generic Name Dose Route Start Last Admin Trade Name Freq PRN Reason Stop Dose Admin Acetaminophen 650 mg 02/27/21 15:26 Acetaminophen 325 Mg Tablet PO Q6H PRN Headache/Pain Mild Scale (1-3) Al Hydroxide/Mg Hydroxide 30 ml 02/27/21 15:26 Magnesium Hydrox/Alum Hydrox 30 Ml Oral.Susp PO Q6H PRN Heartburn/Nausea Albuterol Sulfate 2 puff 02/24/21 08:30 Albuterol Sulfate 90 Mcg 8 Gm Inhaler INHALE Q4H PRN wheezing Clonidine HCl 0.1 mg 02/28/21 21:00 03/02/21 10:22 Clonidine Hcl 0.1 Mg Tablet PO 0.1 mg BID ANGELITA Administration Protocol Haloperidol 5 mg 02/28/21 15:20 03/01/21 18:26 Haloperidol 5 Mg Tablet PO 5 mg TID PRN Administration auditory perceptual alteration Haloperidol 5 mg 03/01/21 21:00 03/02/21 10:22 Haloperidol 5 Mg Tablet PO 5 mg BID AGNELITA Administration Hydroxyzine HCl 25 mg 02/27/21 15:26 03/02/21 00:42 Hydroxyzine Hcl 25 Mg Tablet PO 25 mg BEDTIME PRN Administration Anxiety Lorazepam 1 mg 02/26/21 10:14 03/02/21 17:50 Lorazepam 1 Mg Tablet PO 1 mg BID PRN Administration anxiety/agitation Magnesium Hydroxide 30 ml 02/27/21 15:26 Milk Of Magnesia 30 Ml Oral.Susp PO DAILY PRN Constipation Multivitamins/Minerals 1 tab 03/02/21 09:00 03/02/21 10:22 Multivitamin With Minerals Tablet PO 1 tab DAILY ANGELITA Administration Quetiapine Fumarate 300 mg 02/26/21 21:00 03/01/21 20:02 Quetiapine Fumarate 50 Mg Tablet PO 50 mg BEDTIME ANGELITA Administration Quetiapine Fumarate 50 mg 02/26/21 10:07 03/02/21 10:22 Quetiapine Fumarate 50 Mg Tablet PO 50 mg DAILY ANGELITA Administration Quetiapine Fumarate 50 mg 02/27/21 16:44 03/02/21 16:46 Quetiapine Fumarate 50 Mg Tablet PO 50 mg BID PRN Administration agitation Topiramate 50 mg 02/24/21 21:00 03/01/21 20:01 Topiramate 25 Mg Tablet PO 50 mg BEDTIME ANGELITA Administration Trazodone HCl 50 mg 02/27/21 15:26 03/02/21 00:42 Trazodone Hcl 50 Mg Tablet PO 50 mg BEDTIME PRN Administration Insomnia Allergies Allergies Allergy/AdvReac Type Severity Reaction Status Date / Time oxycodone [OXYCODONE] Allergy Severe SEIZURES Unverified 08/02/20 19:22 Assessment & Plan Assessment & Plan (1) Schizoaffective disorder, bipolar type: Status: Acute Code(s): F25.0 - Schizoaffective disorder, bipolar type Assessment and Plan: Lability persists. Continue current regime. Greater than 50% of the session was spent on counseling and/or coordination of care Reason for contiued inpatient stay Substantial Risk for: harm to self, harm to others, inability to function and rapid decompensation
[2021-03-02] MEDS: QUEtiapine Fumarate 50 MG TABLET 300 MG PO (20:52)
[2021-03-02] MEDS: Topiramate 25 MG TABLET 50 MG PO (20:52)
[2021-03-02 20:53] VITALS: BP 94/52; PULSE 85
[2021-03-03] MEDS: traZODone HCL 50 MG TABLET PO (00:42)
[2021-03-03] MEDS: hydrOXYzine HCL 25 MG TABLET PO (00:43)
[2021-03-03 06:25] VITALS: BP 89/47; PULSE 86; RESP 16; TEMP 36.5; O2SAT 98
[2021-03-03] MEDS: QUEtiapine Fumarate 50 MG TABLET PO ×3 (09:23→18:29)
[2021-03-03] MEDS: HaloperidoL 5 MG TABLET PO ×3 (09:44→21:09)
[2021-03-03 10:37] VITALS: BP 100/49; PULSE 109
--- NOTE | 2021-03-03 19:00 | HO.PSYCHPN ---
Subjective Subjective Date of Service: 03/03/21 Reason For Visit: Bipolar Disorder Subjective Notes: Conditional Voluntary Interim History: Quieter, guarded. Declined individual meeting Medication Compliance: Yes Side effects from medications: No Attending Groups: Yes Review of Systems Review of Systems Yes all other systems are reviewed and are negative Reports behavioral changes Psychiatric: Reports anxiety, Reports behavioral changes, Reports depression, Reports difficulty concentrating, Reports auditory hallucinations, Reports hopelessness, Reports irritability, Reports anhedonia, Reports mood swings, Reports paranoia, Reports hallucinations and Reports suicidal ideation Mental Status Exam Mental Status Exam Patient Appearance: Appropriate Patient Orientation: Person, Place and Situation Level of Consciousness: Alert Patient Behavior: Guarded, Talkative, Passive, Suspicious, Fearful, Fatigued and Distractible Mood Description: Suspicious, Withdrawn and Constricted Affect Description: Calm, Suspicious and Withdrawn Patient Cognition Impaired: No Ability to Follow Directions: Good Speech Pattern: Spontaneous Speech Memory Description: Episodic Impaired Hallucinations: Auditory Delusions: Present Thought Process: Distracted Thought Content: positive for Thought Blocking (Possibly), positive for Suicidal Ideation (denies) and positive for Homicidal Ideation (denies) Depressive Symptoms: Increased Irritability Judgement: Fair Diagnostics Vital Signs (24Hr): Vital Signs - 24 hr 03/02/21 20:53 03/03/21 06:25 03/03/21 10:37 Temperature 97.7 F Pulse Rate 85 86 109 H Respiratory Rate 16 Blood Pressure 94/52 L 89/47 L 100/49 L Pulse Oximetry 98 Body Mass Index 23.6 Medications Medications Current Medications Generic Name Dose Route Start Last Admin Trade Name Freq PRN Reason Stop Dose Admin Acetaminophen 650 mg 02/27/21 15:26 Acetaminophen 325 Mg Tablet PO Q6H PRN Headache/Pain Mild Scale (1-3) Al Hydroxide/Mg Hydroxide 30 ml 02/27/21 15:26 Magnesium Hydrox/Alum Hydrox 30 Ml Oral.Susp PO Q6H PRN Heartburn/Nausea Albuterol Sulfate 2 puff 02/24/21 08:30 Albuterol Sulfate 90 Mcg 8 Gm Inhaler INHALE Q4H PRN wheezing Clonidine HCl 0.1 mg 02/28/21 21:00 03/03/21 10:37 Clonidine Hcl 0.1 Mg Tablet PO Not Given BID ANGELITA Protocol Haloperidol 5 mg 02/28/21 15:20 03/01/21 18:26 Haloperidol 5 Mg Tablet PO 5 mg TID PRN Administration auditory perceptual alteration Haloperidol 5 mg 03/01/21 21:00 03/03/21 09:44 Haloperidol 5 Mg Tablet PO 5 mg BID ANGELITA Administration Hydroxyzine HCl 25 mg 02/27/21 15:26 03/03/21 00:43 Hydroxyzine Hcl 25 Mg Tablet PO 25 mg BEDTIME PRN Administration Anxiety Magnesium Hydroxide 30 ml 02/27/21 15:26 Milk Of Magnesia 30 Ml Oral.Susp PO DAILY PRN Constipation Multivitamins/Minerals 1 tab 03/02/21 09:00 03/03/21 09:44 Multivitamin With Minerals Tablet PO 1 tab DAILY ANGELITA Administration Quetiapine Fumarate 300 mg 02/26/21 21:00 03/02/21 20:52 Quetiapine Fumarate 50 Mg Tablet PO 300 mg BEDTIME ANGELITA Administration Quetiapine Fumarate 50 mg 02/26/21 10:07 03/03/21 09:23 Quetiapine Fumarate 50 Mg Tablet PO 50 mg DAILY ANGELITA Administration Quetiapine Fumarate 50 mg 02/27/21 16:44 03/03/21 18:29 Quetiapine Fumarate 50 Mg Tablet PO 50 mg BID PRN Administration agitation Topiramate 50 mg 02/24/21 21:00 03/02/21 20:52 Topiramate 25 Mg Tablet PO 50 mg BEDTIME ANGELITA Administration Trazodone HCl 50 mg 02/27/21 15:26 03/03/21 00:42 Trazodone Hcl 50 Mg Tablet PO 50 mg BEDTIME PRN Administration Insomnia Allergies Allergies Allergy/AdvReac Type Severity Reaction Status Date / Time oxycodone [OXYCODONE] Allergy Severe SEIZURES Unverified 08/02/20 19:22 Assessment & Plan Assessment & Plan (1) Schizoaffective disorder, bipolar type: Status: Acute Code(s): F25.0 - Schizoaffective disorder, bipolar type Assessment and Plan: Continue current regime. Peterson is interactive in milieu but is guarded today. She denies symptoms of concern and reports medications are tolerated and helpful with sx. Greater than 50% of the session was spent on counseling and/or coordination of care Reason for contiued inpatient stay Substantial Risk for: harm to self, harm to others, inability to function and rapid decompensation
[2021-03-03 21:05] VITALS: BP 107/51; PULSE 75; TEMP 36.6
[2021-03-03] MEDS: QUEtiapine Fumarate 50 MG TABLET 300 MG PO (21:06)
[2021-03-03] MEDS: Topiramate 25 MG TABLET 50 MG PO (21:07)
[2021-03-03 21:09] VITALS: BP 107/51; PULSE 75
[2021-03-03] MEDS: cloNIDine HCL 0.1 MG TABLET PO (21:09)
[2021-03-04 08:20] VITALS: BP 94/56; PULSE 84; RESP 16
[2021-03-04] MEDS: QUEtiapine Fumarate 50 MG TABLET PO ×3 (08:43→19:03)
[2021-03-04] MEDS: HaloperidoL 5 MG TABLET PO ×3 (08:43→21:04)
[2021-03-04 11:15] VITALS: BP 94/56; PULSE 84
[2021-03-04] MEDS: LORazepam 1 MG TABLET PO ×2 (13:22→18:24)
[2021-03-04 21:00] VITALS: BP 89/54; PULSE 108; TEMP 36.2
[2021-03-04] MEDS: Topiramate 25 MG TABLET 50 MG PO (21:04)
[2021-03-04 21:05] VITALS: BP 89/54; PULSE 108
[2021-03-04] MEDS: QUEtiapine Fumarate 50 MG TABLET 300 MG PO (21:05)
--- NOTE | 2021-03-04 21:34 | P.PNPSI_ITS ---
Subjective Subjective Date of Service: 03/04/21 Reason For Visit: Bipolar Disorder Subjective Notes: Conditional Voluntary Interim History: Lability, guarded, making alliances slowly. Some verbal outbursts. No violence. Not in groups yet, minimizes sx. Anxious about upcoming court date for assault at [facility], ?03/11. Discussed leaving for father's home in [place] to live. Able to process that this is not the best option. Discussed looking at other resources for housing with [facility]. Encourage Gokce to think about [facility] as well as short term goals. Approaches team/scientific technical writer to discuss ideas and asks for feedback. Medication Compliance: Yes Side effects from medications: No Attending Groups: No Review of Systems Review of Systems Yes all other systems are reviewed and are negative (denies) Psychiatric: Reports anxiety, Reports depression, Reports difficulty concentrating, Reports auditory hallucinations, Reports hopelessness, Reports irritability, Reports anhedonia, Reports mood swings, Reports paranoia, Reports hallucinations and Reports suicidal ideation Mental Status Exam Mental Status Exam Patient Appearance: Appropriate Patient Orientation: Person, Place and Situation Level of Consciousness: Alert Patient Behavior: Guarded, Talkative, Cooperative, Suspicious, Anxious, Avoidant, Distractible, Isolative and Good Eye Contact Mood Description: Depressed and Labile Affect Description: Constricted Patient Cognition Impaired: No Ability to Follow Directions: Good Speech Pattern: Spontaneous Speech Memory Description: Episodic Impaired Hallucinations: Auditory Delusions: Paranoid Ideation and Present Perceptual Disturbances: Depersonalization Thought Process: Distracted and Rumination Thought Content: positive for Perseveration, positive for Thought Blocking, positive for Tangential and positive for Suicidal Ideation Depressive Symptoms: Increased Anxiety, Diff. Making Decisions, Increased Irritability, Loss of Int. in Activity, Feelings of Worthlessness, Hopelessness, Isolating-Friends/Family, Feelings of Guilt, Unhappiness, Increased Fatigue, Thoughts of /Suicide, Low Self Esteem and Difficulty Concentrating Abnormal Motor Activity Signs and Symptoms: Restlessness Judgement: Fair Diagnostics Vital Signs (24Hr): Vital Signs - 24 hr 03/04/21 08:20 03/04/21 11:15 03/04/21 21:05 Pulse Rate 84 84 108 H Respiratory Rate 16 Blood Pressure 94/56 L 94/56 L 89/54 L Body Mass Index 23.6 Medications Medications Current Medications Generic Name Dose Route Start Last Admin Trade Name Freq PRN Reason Stop Dose Admin Acetaminophen 650 mg 02/27/21 15:26 Acetaminophen 325 Mg Tablet PO Q6H PRN Headache/Pain Mild Scale (1-3) Al Hydroxide/Mg Hydroxide 30 ml 02/27/21 15:26 Magnesium Hydrox/Alum Hydrox 30 Ml Oral.Susp PO Q6H PRN Heartburn/Nausea Albuterol Sulfate 2 puff 02/24/21 08:30 Albuterol Sulfate 90 Mcg 8 Gm Inhaler INHALE Q4H PRN wheezing Clonidine HCl 0.1 mg 02/28/21 21:00 03/04/21 21:05 Clonidine Hcl 0.1 Mg Tablet PO Not Given BID ANGELITA Protocol Haloperidol 5 mg 02/28/21 15:20 03/04/21 18:27 Haloperidol 5 Mg Tablet PO 5 mg TID PRN Administration auditory perceptual alteration Haloperidol 5 mg 03/01/21 21:00 03/04/21 21:04 Haloperidol 5 Mg Tablet PO 5 mg BID ANGELITA Administration Hydroxyzine HCl 25 mg 02/27/21 15:26 03/03/21 00:43 Hydroxyzine Hcl 25 Mg Tablet PO 25 mg BEDTIME PRN Administration Anxiety Lorazepam 1 mg 03/03/21 19:18 03/04/21 18:24 Lorazepam 1 Mg Tablet PO 1 mg BID PRN Administration Anxiety Magnesium Hydroxide 30 ml 02/27/21 15:26 Milk Of Magnesia 30 Ml Oral.Susp PO DAILY PRN Constipation Multivitamins/Minerals 1 tab 03/02/21 09:00 03/04/21 08:42 Multivitamin With Minerals Tablet PO 1 tab DAILY ANGELITA Administration Quetiapine Fumarate 300 mg 02/26/21 21:00 03/04/21 21:05 Quetiapine Fumarate 50 Mg Tablet PO 300 mg BEDTIME ANGELITA Administration Quetiapine Fumarate 50 mg 02/26/21 10:07 03/04/21 08:43 Quetiapine Fumarate 50 Mg Tablet PO 50 mg DAILY ANGELITA Administration Quetiapine Fumarate 50 mg 02/27/21 16:44 03/04/21 19:03 Quetiapine Fumarate 50 Mg Tablet PO 50 mg BID PRN Administration agitation Topiramate 50 mg 02/24/21 21:00 03/04/21 21:04 Topiramate 25 Mg Tablet PO 50 mg BEDTIME ANGELITA Administration Trazodone HCl 50 mg 02/27/21 15:26 03/03/21 00:42 Trazodone Hcl 50 Mg Tablet PO 50 mg BEDTIME PRN Administration Insomnia Allergies Allergies Allergy/AdvReac Type Severity Reaction Status Date / Time oxycodone [OXYCODONE] Allergy Severe SEIZURES Unverified 08/02/20 19:22 Assessment & Plan Assessment & Plan (1) Schizoaffective disorder, bipolar type: Status: Acute Code(s): F25.0 - Schizoaffective disorder, bipolar type Assessment and Plan: Continue current regime. Peterson is interactive in milieu and appears to making gradual alliances. She denies symptoms of concern and reports medications are tolerated and helpful with sx. Greater than 50% of the session was spent on counseling and/or coordination of care Reason for contiued inpatient stay Substantial Risk for: harm to self, harm to others, inability to function and rapid decompensation
[2021-03-04] MEDS: traZODone HCL 50 MG TABLET PO (23:08)
[2021-03-04] MEDS: hydrOXYzine HCL 25 MG TABLET PO (23:08)
[2021-03-05 09:24] VITALS: BP 111/63; PULSE 103; RESP 16; TEMP 36.1; O2SAT 98
[2021-03-05 09:26] VITALS: BP 111/63; PULSE 103
[2021-03-05] MEDS: cloNIDine HCL 0.1 MG TABLET PO (09:26)
[2021-03-05] MEDS: QUEtiapine Fumarate 50 MG TABLET PO ×2 (09:27→17:14)
[2021-03-05] MEDS: HaloperidoL 5 MG TABLET PO ×3 (09:27→20:02)
--- NOTE | 2021-03-05 10:30 | P.PNPSI_ITS ---
Subjective Subjective Date of Service: 03/06/21 Reason For Visit: Bipolar Disorder Subjective Notes: [place] Order and [place] 8 Interim History: pt depressed anxious less agitation no threats limited insight fearful Medication Compliance: Yes Mental Status Exam Mental Status Exam Patient Appearance: Appropriate Patient Orientation: Person, Place and Situation Level of Consciousness: Alert Patient Behavior: Guarded, Talkative, Cooperative, Suspicious, Anxious, Avoidant, Distractible, Isolative and Good Eye Contact Mood Description: Depressed and Labile Affect Description: Constricted Patient Cognition Impaired: No Ability to Follow Directions: Good Speech Pattern: Spontaneous Speech Memory Description: Episodic Impaired Hallucinations: Auditory Delusions: Paranoid Ideation and Present Perceptual Disturbances: Depersonalization Thought Process: Distracted and Rumination Thought Content: positive for Perseveration, positive for Thought Blocking, p ositive for Tangential and positive for Suicidal Ideation Depressive Symptoms: Increased Anxiety, Diff. Making Decisions, Increased Irritability, Loss of Int. in Activity, Feelings of Worthlessness, Hopelessness, Isolating-Friends/Family, Feelings of Guilt, Unhappiness, Increased Fatigue, Thoughts of /Suicide, Low Self Esteem and Difficulty Concentrating Abnormal Motor Activity Signs and Symptoms: Restlessness Judgement: Fair Diagnostics Vital Signs (24Hr): Vital Signs - 24 hr 03/04/21 11:15 03/04/21 21:00 03/04/21 21:05 Temperature 97.2 F Pulse Rate 84 108 H 108 H Respiratory Rate Blood Pressure 94/56 L 89/54 L 89/54 L Pulse Oximetry 03/05/21 09:24 03/05/21 09:26 Temperature 96.9 F Pulse Rate 103 H 103 H Respiratory Rate 16 Blood Pressure 111/63 111/63 Pulse Oximetry 98 Body Mass Index 23.6 Medications Medications Current Medications Generic Name Dose Route Start Last Admin Trade Name Freq PRN Reason Stop Dose Admin Acetaminophen 650 mg 02/27/21 15:26 Acetaminophen 325 Mg Tablet PO Q6H PRN Headache/Pain Mild Scale (1-3) Al Hydroxide/Mg Hydroxide 30 ml 02/27/21 15:26 Magnesium Hydrox/Alum Hydrox 30 Ml Oral.Susp PO Q6H PRN Heartburn/Nausea Albuterol Sulfate 2 puff 02/24/21 08:30 Albuterol Sulfate 90 Mcg 8 Gm Inhaler INHALE Q4H PRN wheezing Clonidine HCl 0.1 mg 02/28/21 21:00 03/05/21 09:26 Clonidine Hcl 0.1 Mg Tablet PO 0.1 mg BID ANGELITA Administration Protocol Haloperidol 5 mg 02/28/21 15:20 03/04/21 18:27 Haloperidol 5 Mg Tablet PO 5 mg TID PRN Administration auditory perceptual alteration Haloperidol 5 mg 03/01/21 21:00 03/05/21 09:27 Haloperidol 5 Mg Tablet PO 5 mg BID ANGELITA Administration Hydroxyzine HCl 25 mg 02/27/21 15:26 03/04/21 23:08 Hydroxyzine Hcl 25 Mg Tablet PO 25 mg BEDTIME PRN Administration Anxiety Lorazepam 1 mg 03/03/21 19:18 03/04/21 18:24 Lorazepam 1 Mg Tablet PO 1 mg BID PRN Administration Anxiety Magnesium Hydroxide 30 ml 02/27/21 15:26 Milk Of Magnesia 30 Ml Oral.Susp PO DAILY PRN Constipation Multivitamins/Minerals 1 tab 03/02/21 09:00 03/05/21 09:27 Multivitamin With Minerals Tablet PO 1 tab DAILY ANGELITA Administration Quetiapine Fumarate 300 mg 02/26/21 21:00 03/04/21 21:05 Quetiapine Fumarate 50 Mg Tablet PO 300 mg BEDTIME ANGELITA Administration Quetiapine Fumarate 50 mg 02/26/21 10:07 03/05/21 09:27 Quetiapine Fumarate 50 Mg Tablet PO 50 mg DAILY ANGELITA Administration Quetiapine Fumarate 50 mg 02/27/21 16:44 03/04/21 19:03 Quetiapine Fumarate 50 Mg Tablet PO 50 mg BID PRN Administration agitation Topiramate 50 mg 02/24/21 21:00 03/04/21 21:04 Topiramate 25 Mg Tablet PO 50 mg BEDTIME ANGELITA Administration Trazodone HCl 50 mg 02/27/21 15:26 03/04/21 23:08 Trazodone Hcl 50 Mg Tablet PO 50 mg BEDTIME PRN Administration Insomnia Allergies Allergies Allergy/AdvReac Type Severity Reaction Status Date / Time oxycodone [OXYCODONE] Allergy Severe SEIZURES Unverified 08/02/20 19:22 Assessment & Plan Assessment & Plan (1) Schizoaffective disorder, bipolar type: Status: Acute Code(s): F25.0 - Schizoaffective disorder, bipolar type Assessment and Plan: Pt anxious and preoccupied regarding retraining order less agitation ? change to haldol dec Greater than 50% of the session was spent on counseling and/or coordination of care Reason for contiued inpatient stay Substantial Risk for: harm to self and rapid decompensation
[2021-03-05] MEDS: LORazepam 1 MG TABLET PO (16:21)
[2021-03-05 16:30] VITALS: BP 104/58; PULSE 90; RESP 18; TEMP 36.8; O2SAT 99
[2021-03-05] MEDS: QUEtiapine Fumarate 50 MG TABLET 300 MG PO (20:01)
[2021-03-05] MEDS: Topiramate 25 MG TABLET 50 MG PO (20:01)
[2021-03-05 22:26] VITALS: BP 95/55; PULSE 88
[2021-03-05] MEDS: traZODone HCL 50 MG TABLET PO (23:44)
[2021-03-05] MEDS: hydrOXYzine HCL 25 MG TABLET PO (23:44)
[2021-03-06 06:00] VITALS: BP 102/64; PULSE 92; RESP 14
[2021-03-06 08:09] VITALS: BP 102/64; PULSE 92
[2021-03-06] MEDS: cloNIDine HCL 0.1 MG TABLET PO ×2 (08:09→19:34)
[2021-03-06] MEDS: HaloperidoL 5 MG TABLET PO ×3 (08:09→19:35)
[2021-03-06] MEDS: QUEtiapine Fumarate 50 MG TABLET PO ×2 (08:09→16:37)
--- NOTE | 2021-03-06 14:39 | P.PNPSI_ITS ---
Subjective Subjective Date of Service: 03/07/21 Reason For Visit: Bipolar Disorder Subjective Notes: Conditional Voluntary Interim History: Pt reports she is OK . Reports medications are helpful, denies SE. Discussed OP plan. Pt would like to go to [facility] respite. She has court on 03/12. Discussed her concerns. Discussed adding SALAZAR to regime. She declines as she has had SALAZAR before and she feels blunted and un-like herself. She denies SI HI, denies depressive sx. Medication Compliance: Yes Side effects from medications: No Attending Groups: Intermittent Review of Systems Review of Systems Yes all other systems are reviewed and are negative (denies) Reports behavioral changes Psychiatric: Reports anxiety, Reports behavioral changes and Reports depression Mental Status Exam Mental Status Exam Patient Appearance: Appropriate Patient Orientation: Person, Place, Time and Situation Level of Consciousness: Alert Patient Behavior: Guarded, Suspicious, Anxious and Good Eye Contact Mood Description: Constricted and Depressed Affect Description: Constricted Patient Cognition Impaired: No Ability to Follow Directions: Good Speech Pattern: Spontaneous Speech Memory Description: Intact Hallucinations: None (pt denies, this is questionable) Delusions: Paranoid Ideation Thought Process: Distracted and Rumination Thought Content: positive for [place], positive for Circumstantial, positive for [place], positive for Perseveration and positive for Suicidal Ideation (denies) Depressive Symptoms: Increased Anxiety and Thoughts of /Suicide (denies) Judgement: Fair Diagnostics Vital Signs (24Hr): Vital Signs - 24 hr 03/05/21 16:30 03/05/21 22:26 03/06/21 06:00 Temperature 98.3 F Pulse Rate 90 88 92 Respiratory Rate 18 14 Blood Pressure 104/58 L 95/55 L 102/64 Pulse Oximetry 99 03/06/21 08:09 Temperature Pulse Rate 92 Respiratory Rate Blood Pressure 102/64 Pulse Oximetry Body Mass Index 23.6 Medications Medications Current Medications Generic Name Dose Route Start Last Admin Trade Name Freq PRN Reason Stop Dose Admin Acetaminophen 650 mg 02/27/21 15:26 Acetaminophen 325 Mg Tablet PO Q6H PRN Headache/Pain Mild Scale (1-3) Al Hydroxide/Mg Hydroxide 30 ml 02/27/21 15:26 Magnesium Hydrox/Alum Hydrox 30 Ml Oral.Susp PO Q6H PRN Heartburn/Nausea Albuterol Sulfate 2 puff 02/24/21 08:30 Albuterol Sulfate 90 Mcg 8 Gm Inhaler INHALE Q4H PRN wheezing Clonidine HCl 0.1 mg 02/28/21 21:00 03/06/21 08:09 Clonidine Hcl 0.1 Mg Tablet PO 0.1 mg BID ANGELITA Administration Protocol Haloperidol 5 mg 02/28/21 15:20 03/05/21 16:24 Haloperidol 5 Mg Tablet PO 5 mg TID PRN Administration auditory perceptual alteration Haloperidol 5 mg 03/01/21 21:00 03/06/21 08:09 Haloperidol 5 Mg Tablet PO 5 mg BID ANGELITA Administration Hydroxyzine HCl 25 mg 02/27/21 15:26 03/05/21 23:44 Hydroxyzine Hcl 25 Mg Tablet PO 25 mg BEDTIME PRN Administration Anxiety Lorazepam 1 mg 03/03/21 19:18 03/05/21 16:21 Lorazepam 1 Mg Tablet PO 1 mg BID PRN Administration Anxiety Magnesium Hydroxide 30 ml 02/27/21 15:26 Milk Of Magnesia 30 Ml Oral.Susp PO DAILY PRN Constipation Multivitamins/Minerals 1 tab 03/02/21 09:00 03/06/21 08:09 Multivitamin With Minerals Tablet PO 1 tab DAILY ANGELITA Administration Quetiapine Fumarate 300 mg 02/26/21 21:00 03/05/21 20:01 Quetiapine Fumarate 50 Mg Tablet PO 300 mg BEDTIME ANGELITA Administration Quetiapine Fumarate 50 mg 02/26/21 10:07 03/06/21 08:09 Quetiapine Fumarate 50 Mg Tablet PO 50 mg DAILY ANGELITA Administration Quetiapine Fumarate 50 mg 02/27/21 16:44 03/05/21 17:14 Quetiapine Fumarate 50 Mg Tablet PO 50 mg BID PRN Administration agitation Topiramate 50 mg 02/24/21 21:00 03/05/21 20:01 Topiramate 25 Mg Tablet PO 50 mg BEDTIME ANGELITA Administration Trazodone HCl 50 mg 02/27/21 15:26 03/05/21 23:44 Trazodone Hcl 50 Mg Tablet PO 50 mg BEDTIME PRN Administration Insomnia Allergies Allergies Allergy/AdvReac Type Severity Reaction Status Date / Time oxycodone [OXYCODONE] Allergy Severe SEIZURES Unverified 08/02/20 19:22 Assessment & Plan Assessment & Plan (1) Schizoaffective disorder, bipolar type: Status: Acute Code(s): F25.0 - Schizoaffective disorder, bipolar type Assessment and Plan: Pt anxious and preoccupied regarding retraining order and mother planning to return to [place]. Declines SALAZAR Planning respite admit. Greater than 50% of the session was spent on counseling and/or coordination of care Reason for contiued inpatient stay Substantial Risk for: harm to self, harm to others, inability to function and rapid decompensation
[2021-03-06] MEDS: LORazepam 1 MG TABLET PO (16:37)
[2021-03-06 17:21] VITALS: BP 103/53; PULSE 78; RESP 16; TEMP 36.6; O2SAT 96
[2021-03-06 17:23] VITALS: BP 103/53; PULSE 78; RESP 16; TEMP 36.6; O2SAT 96
[2021-03-06 19:20] VITALS: BP 101/67; PULSE 90; RESP 20; TEMP 36.4; O2SAT 99
[2021-03-06 19:34] VITALS: BP 101/67; PULSE 90
[2021-03-06] MEDS: QUEtiapine Fumarate 50 MG TABLET 300 MG PO (19:35)
[2021-03-06] MEDS: Topiramate 25 MG TABLET 50 MG PO (19:35)
[2021-03-07] MEDS: traZODone HCL 50 MG TABLET PO ×2 (01:16→23:58)
[2021-03-07] MEDS: hydrOXYzine HCL 25 MG TABLET PO ×2 (01:16→23:58)
[2021-03-07 06:00] VITALS: BP 94/50; PULSE 71; RESP 14; TEMP 36.3; O2SAT 98
[2021-03-07 07:00] VITALS: BMI 22.4
[2021-03-07 09:07] VITALS: BP 116/68; PULSE 82
[2021-03-07] MEDS: cloNIDine HCL 0.1 MG TABLET PO (09:07)
[2021-03-07] MEDS: HaloperidoL 5 MG TABLET PO ×2 (09:08→20:41)
[2021-03-07] MEDS: QUEtiapine Fumarate 50 MG TABLET PO ×2 (09:08→18:27)
--- NOTE | 2021-03-07 16:20 | P.PNPSI_ITS ---
Subjective Subjective Date of Service: 03/07/21 Reason For Visit: Bipolar Disorder Subjective Notes: Conditional Voluntary Interim History: Isolative, denies sx, but is guarded, withdrawn. Planning discharge-[facility] respite bed with [facility]. Medication Compliance: Yes Side effects from medications: No Attending Groups: Intermittent Review of Systems Review of Systems Yes all other systems are reviewed and are negative Psychiatric: Reports anxiety, Reports depression, Reports auditory hallucinations, Reports hopelessness and Reports irritability Mental Status Exam Mental Status Exam Patient Appearance: Appropriate Patient Orientation: Person, Place, Time and Situation Level of Consciousness: Alert Patient Behavior: Guarded and Isolative Mood Description: Suspicious and Withdrawn Affect Description: Constricted Patient Cognition Impaired: No Ability to Follow Directions: Good Speech Pattern: Spontaneous Speech Memory Description: Intact Hallucinations: None (denies-questionable) Delusions: Present Thought Process: Distracted and Rumination Thought Content: positive for [place], positive for Circumstantial, positive for Perseveration, positive for Suicidal Ideation (denies) and positive for Homicidal Ideation (denies) Depressive Symptoms: Increased Anxiety, Loss of Int. in Activity, Feelings of Worthlessness, Hopelessness, Isolating-Friends/Family, Feelings of Guilt, Unhappiness, Increased Fatigue, Low Self Esteem, Loss of Energy and Difficulty Concentrating Judgement: Fair Diagnostics Vital Signs (24Hr): Vital Signs - 24 hr 03/06/21 17:21 03/06/21 17:23 03/06/21 19:20 Temperature 97.8 F 97.8 F 97.6 F Pulse Rate 78 78 90 Respiratory Rate 16 16 20 Blood Pressure 103/53 L 103/53 L 101/67 Pulse Oximetry 96 96 99 03/06/21 19:34 03/07/21 06:00 03/07/21 09:07 Temperature 97.4 F Pulse Rate 90 71 82 Respiratory Rate 14 Blood Pressure 101/67 94/50 L 116/68 Pulse Oximetry 98 Body Mass Index 22.4 Medications Medications Current Medications Generic Name Dose Route Start Last Admin Trade Name Freq PRN Reason Stop Dose Admin Acetaminophen 650 mg 02/27/21 15:26 Acetaminophen 325 Mg Tablet PO Q6H PRN Headache/Pain Mild Scale (1-3) Al Hydroxide/Mg Hydroxide 30 ml 02/27/21 15:26 Magnesium Hydrox/Alum Hydrox 30 Ml Oral.Susp PO Q6H PRN Heartburn/Nausea Albuterol Sulfate 2 puff 02/24/21 08:30 Albuterol Sulfate 90 Mcg 8 Gm Inhaler INHALE Q4H PRN wheezing Clonidine HCl 0.1 mg 02/28/21 21:00 03/07/21 09:07 Clonidine Hcl 0.1 Mg Tablet PO 0.1 mg BID ANGELITA Administration Protocol Haloperidol 5 mg 02/28/21 15:20 03/06/21 18:09 Haloperidol 5 Mg Tablet PO 5 mg TID PRN Administration auditory perceptual alteration Haloperidol 5 mg 03/01/21 21:00 03/07/21 09:08 Haloperidol 5 Mg Tablet PO 5 mg BID ANGELITA Administration Hydroxyzine HCl 25 mg 02/27/21 15:26 03/07/21 01:16 Hydroxyzine Hcl 25 Mg Tablet PO 25 mg BEDTIME PRN Administration Anxiety Lorazepam 1 mg 03/03/21 19:18 03/06/21 16:37 Lorazepam 1 Mg Tablet PO 1 mg BID PRN Administration Anxiety Magnesium Hydroxide 30 ml 02/27/21 15:26 Milk Of Magnesia 30 Ml Oral.Susp PO DAILY PRN Constipation Multivitamins/Minerals 1 tab 03/02/21 09:00 03/07/21 09:08 Multivitamin With Minerals Tablet PO 1 tab DAILY ANGELITA Administration Quetiapine Fumarate 300 mg 02/26/21 21:00 03/06/21 19:35 Quetiapine Fumarate 50 Mg Tablet PO 300 mg BEDTIME ANGELITA Administration Quetiapine Fumarate 50 mg 02/26/21 10:07 03/07/21 09:08 Quetiapine Fumarate 50 Mg Tablet PO 50 mg DAILY ANGELITA Administration Quetiapine Fumarate 50 mg 02/27/21 16:44 03/06/21 16:37 Quetiapine Fumarate 50 Mg Tablet PO 50 mg BID PRN Administration agitation Topiramate 50 mg 02/24/21 21:00 03/06/21 19:35 Topiramate 25 Mg Tablet PO 50 mg BEDTIME ANGELITA Administration Trazodone HCl 50 mg 02/27/21 15:26 03/07/21 01:16 Trazodone Hcl 50 Mg Tablet PO 50 mg BEDTIME PRN Administration Insomnia Allergies Allergies Allergy/AdvReac Type Severity Reaction Status Date / Time oxycodone [OXYCODONE] Allergy Severe SEIZURES Unverified 08/02/20 19:22 Assessment & Plan Assessment & Plan (1) Schizoaffective disorder, bipolar type: Status: Acute Code(s): F25.0 - Schizoaffective disorder, bipolar type Assessment and Plan: Pt anxious and preoccupied regarding retraining order and mother planning to return to [place]. Declines SALAZAR Planning respite admit. Greater than 50% of the session was spent on counseling and/or coordination of care Reason for contiued inpatient stay Substantial Risk for: harm to self, harm to others, inability to function and rapid decompensation
[2021-03-07 18:00] VITALS: BP 94/53; PULSE 103; TEMP 36.4
[2021-03-07] MEDS: LORazepam 1 MG TABLET PO (18:27)
[2021-03-07 20:40] VITALS: BP 94/53; PULSE 103
[2021-03-07] MEDS: Topiramate 25 MG TABLET 50 MG PO (20:41)
[2021-03-07] MEDS: QUEtiapine Fumarate 50 MG TABLET 300 MG PO (20:41)
[2021-03-08 08:40] VITALS: BP 88/53; PULSE 67; RESP 16; TEMP 36.6; O2SAT 16
[2021-03-08] MEDS: HaloperidoL 5 MG TABLET PO ×2 (08:49→19:54)
[2021-03-08] MEDS: QUEtiapine Fumarate 50 MG TABLET PO ×2 (08:50→17:36)
[2021-03-08 12:41] VITALS: BP 88/53; PULSE 67
--- NOTE | 2021-03-08 13:36 | P.PNPSO_ITS ---
Subjective Subjective Date of Service: 03/08/21 Reason For Visit: Bipolar Disorder Interim History: Calm, visable on the unit. Interactive with team. Has a housing option she reports in [place] with a friend of her fathers and his and three young children [phone]. States she does not know him well. 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 We will begin to assist pt to explore this option. Reports sleep is intact as is appetite. Denies SI. Overall presentation is guarded but more interactive Diagnostics Vital Signs (24Hr): Vital Signs - 24 hr 03/07/21 18:00 03/07/21 20:40 03/08/21 08:40 Temperature 97.5 F 98 F Pulse Rate 103 H 103 H 67 Respiratory Rate 16 Blood Pressure 94/53 L 94/53 L 88/53 L Pulse Oximetry 16 L 03/08/21 12:41 Temperature Pulse Rate 67 Respiratory Rate Blood Pressure 88/53 L Pulse Oximetry Body Mass Index 22.4 Discharge Plan Discharge Referrals: Physician,Unknown [Primary Care Provider] - 1 Week Discharge Medications: No Action diphenhydramine HCl [Banophen] 50 mg capsule 50 mg PO BEDTIME RF: 0 trazodone 50 mg tablet 1 tab PO BEDTIME RF: 0 chlorpromazine 100 mg tablet 1 tab PO BEDTIME RF: 0 melatonin 3 mg tablet 1 tab PO BEDTIME RF: 0 quetiapine 100 mg tablet 1 tab PO BEDTIME RF: 0 lithium carbonate 300 mg tablet 1 tab PO BID RF: 0 chlorpromazine 50 mg tablet 50 mg PO BID RF: 0 topiramate 50 mg tablet 1 tab PO BEDTIME RF: 0 quetiapine 50 mg tablet 1 tab PO BID RF: 0 albuterol sulfate [ProAir HFA] 90 mcg/actuation HFA aerosol inhaler 2 puff PO Q4-6H PRN (Reason: wheezing) RF: 0 Assessment & Plan Greater than 50% of the session was spent on counseling and/or coordination of care
--- NOTE | 2021-03-08 16:22 | HO.PSYCHPN ---
Subjective Subjective Date of Service: 03/08/21 Reason For Visit: Bipolar Disorder Subjective Notes: Conditional Voluntary Interim History: Calm, visable, interactive. Reports a possible housing option in [place], a friend of her father his and three young children, [employer] [phone]. 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 Reports sleep appetite are intact, denies SI and is guarded but overall more interactive. Medication Compliance: Yes Side effects from medications: No Attending Groups: No Review of Systems Review of Systems Yes all other systems are reviewed and are negative Reports behavioral changes Psychiatric: Reports anxiety, Reports behavioral changes, Reports difficulty concentrating and Reports irritability Mental Status Exam Mental Status Exam Patient Appearance: Appropriate Patient Orientation: Person, Place, Time and Situation Level of Consciousness: Alert Patient Behavior: Guarded and Talkative Mood Description: Suspicious and Constricted Affect Description: Constricted Patient Cognition Impaired: No Ability to Follow Directions: Good Speech Pattern: Spontaneous Speech Memory Description: Intact Hallucinations: None (denies) Delusions: Paranoid Ideation and Present Thought Process: Distracted and Rumination Thought Content: positive for [place] and positive for Circumstantial Depressive Symptoms: Increased Anxiety, Diff. Making Decisions, Unhappiness and Difficulty Concentrating Judgement: Fair Diagnostics Vital Signs (24Hr): Vital Signs - 24 hr 03/07/21 18:00 03/07/21 20:40 03/08/21 08:40 Temperature 97.5 F 98 F Pulse Rate 103 H 103 H 67 Respiratory Rate 16 Blood Pressure 94/53 L 94/53 L 88/53 L Pulse Oximetry 16 L 03/08/21 12:41 Temperature Pulse Rate 67 Respiratory Rate Blood Pressure 88/53 L Pulse Oximetry Body Mass Index 22.4 Medications Medications Current Medications Generic Name Dose Route Start Last Admin Trade Name Freq PRN Reason Stop Dose Admin Acetaminophen 650 mg 02/27/21 15:26 Acetaminophen 325 Mg Tablet PO Q6H PRN Headache/Pain Mild Scale (1-3) Al Hydroxide/Mg Hydroxide 30 ml 02/27/21 15:26 Magnesium Hydrox/Alum Hydrox 30 Ml Oral.Susp PO Q6H PRN Heartburn/Nausea Albuterol Sulfate 2 puff 02/24/21 08:30 Albuterol Sulfate 90 Mcg 8 Gm Inhaler INHALE Q4H PRN wheezing Clonidine HCl 0.1 mg 02/28/21 21:00 03/08/21 12:41 Clonidine Hcl 0.1 Mg Tablet PO Not Given BID ANGELITA Protocol Haloperidol 5 mg 02/28/21 15:20 03/06/21 18:09 Haloperidol 5 Mg Tablet PO 5 mg TID PRN Administration auditory perceptual alteration Haloperidol 5 mg 03/01/21 21:00 03/08/21 08:49 Haloperidol 5 Mg Tablet PO 5 mg BID ANGELITA Administration Hydroxyzine HCl 25 mg 02/27/21 15:26 03/07/21 23:58 Hydroxyzine Hcl 25 Mg Tablet PO 25 mg BEDTIME PRN Administration Anxiety Lorazepam 1 mg 03/03/21 19:18 03/07/21 18:27 Lorazepam 1 Mg Tablet PO 1 mg BID PRN Administration Anxiety Magnesium Hydroxide 30 ml 02/27/21 15:26 Milk Of Magnesia 30 Ml Oral.Susp PO DAILY PRN Constipation Multivitamins/Minerals 1 tab 03/02/21 09:00 03/08/21 08:50 Multivitamin With Minerals Tablet PO 1 tab DAILY ANGELITA Administration Quetiapine Fumarate 300 mg 02/26/21 21:00 03/07/21 20:41 Quetiapine Fumarate 50 Mg Tablet PO 300 mg BEDTIME ANGELITA Administration Quetiapine Fumarate 50 mg 02/26/21 10:07 03/08/21 08:50 Quetiapine Fumarate 50 Mg Tablet PO 50 mg DAILY ANGELITA Administration Quetiapine Fumarate 50 mg 02/27/21 16:44 03/07/21 18:27 Quetiapine Fumarate 50 Mg Tablet PO 50 mg BID PRN Administration agitation Topiramate 50 mg 02/24/21 21:00 03/07/21 20:41 Topiramate 25 Mg Tablet PO 50 mg BEDTIME ANGELITA Administration Trazodone HCl 50 mg 02/27/21 15:26 03/07/21 23:58 Trazodone Hcl 50 Mg Tablet PO 50 mg BEDTIME PRN Administration Insomnia Allergies Allergies Allergy/AdvReac Type Severity Reaction Status Date / Time oxycodone [OXYCODONE] Allergy Severe SEIZURES Unverified 08/02/20 19:22 Assessment & Plan Assessment & Plan (1) Schizoaffective disorder, bipolar type: Status: Acute Code(s): F25.0 - Schizoaffective disorder, bipolar type Assessment and Plan: Continue current regime Declines SALAZAR Planning respite admit. Greater than 50% of the session was spent on counseling and/or coordination of care Reason for contiued inpatient stay Substantial Risk for: harm to self, harm to others, inability to function and rapid decompensation
[2021-03-08] MEDS: LORazepam 1 MG TABLET PO (17:35)
[2021-03-08] MEDS: Topiramate 25 MG TABLET 50 MG PO (19:53)
[2021-03-08] MEDS: QUEtiapine Fumarate 50 MG TABLET 300 MG PO (19:53)
[2021-03-08 19:58] VITALS: BP 103/55; PULSE 92
[2021-03-08] MEDS: hydrOXYzine HCL 25 MG TABLET PO (22:42)
[2021-03-08] MEDS: traZODone HCL 50 MG TABLET PO (22:42)
[2021-03-09 08:00] VITALS: BP 101/58; PULSE 90; RESP 16; TEMP 36.6; O2SAT 99
[2021-03-09 08:36] VITALS: BP 101/58; PULSE 90
[2021-03-09] MEDS: cloNIDine HCL 0.1 MG TABLET PO ×2 (08:36→20:02)
[2021-03-09] MEDS: HaloperidoL 5 MG TABLET PO ×2 (08:37→20:02)
[2021-03-09] MEDS: QUEtiapine Fumarate 50 MG TABLET PO (08:37)
[2021-03-09] MEDS: LORazepam 1 MG TABLET PO ×2 (14:27→22:08)
--- NOTE | 2021-03-09 16:40 | P.PNPSI_ITS ---
Subjective Subjective Date of Service: 03/09/21 Reason For Visit: Bipolar Disorder Subjective Notes: Conditional Voluntary Interim History: Peterson had no immediate concerns. She was in behavioral control. Medication Compliance: Yes Side effects from medications: No Attending Groups: No Review of Systems Acute medical concerns: No Medical Review of Systems: unchanged Mental Status Exam Mental Status Exam Patient Appearance: Appropriate Patient Orientation: Person, Place, Time and Situation Level of Consciousness: Alert Patient Behavior: Guarded and Talkative Mood Description: Suspicious and Constricted Affect Description: Constricted Patient Cognition Impaired: No Ability to Follow Directions: Good Speech Pattern: Spontaneous Speech Memory Description: Intact Hallucinations: None (denies) Delusions: Paranoid Ideation and Present Thought Process: Distracted and Rumination Thought Content: positive for [place], positive for Circumstantial, negative for Suicidal Ideation and negative for Homicidal Ideation Depressive Symptoms: Increased Anxiety, Diff. Making Decisions, Unhappiness and Difficulty Concentrating Judgement: Fair Diagnostics Vital Signs (24Hr): Vital Signs - 24 hr 03/08/21 19:58 03/09/21 08:00 03/09/21 08:36 Temperature 97.8 F Pulse Rate 92 90 90 Respiratory Rate 16 Blood Pressure 103/55 L 101/58 L 101/58 L Pulse Oximetry 99 Body Mass Index 22.4 Medications Medications Current Medications Generic Name Dose Route Start Last Admin Trade Name Milesq PRN Reason Stop Dose Admin Acetaminophen 650 mg 02/27/21 15:26 Acetaminophen 325 Mg Tablet PO Q6H PRN Headache/Pain Mild Scale (1-3) Al Hydroxide/Mg Hydroxide 30 ml 02/27/21 15:26 Magnesium Hydrox/Alum Hydrox 30 Ml Oral.Susp PO Q6H PRN Heartburn/Nausea Albuterol Sulfate 2 puff 02/24/21 08:30 Albuterol Sulfate 90 Mcg 8 Gm Inhaler INHALE Q4H PRN wheezing Clonidine HCl 0.1 mg 02/28/21 21:00 03/09/21 08:36 Clonidine Hcl 0.1 Mg Tablet PO 0.1 mg BID ANGELITA Administration Protocol Haloperidol 5 mg 02/28/21 15:20 03/06/21 18:09 Haloperidol 5 Mg Tablet PO 5 mg TID PRN Administration auditory perceptual alteration Haloperidol 5 mg 03/01/21 21:00 03/09/21 08:37 Haloperidol 5 Mg Tablet PO 5 mg BID ANGELITA Administration Hydroxyzine HCl 25 mg 02/27/21 15:26 03/08/21 22:42 Hydroxyzine Hcl 25 Mg Tablet PO 25 mg BEDTIME PRN Administration Anxiety Lorazepam 1 mg 03/03/21 19:18 03/09/21 14:27 Lorazepam 1 Mg Tablet PO 1 mg BID PRN Administration Anxiety Magnesium Hydroxide 30 ml 02/27/21 15:26 Milk Of Magnesia 30 Ml Oral.Susp PO DAILY PRN Constipation Multivitamins/Minerals 1 tab 03/02/21 09:00 03/09/21 08:36 Multivitamin With Minerals Tablet PO 1 tab DAILY ANGELITA Administration Quetiapine Fumarate 300 mg 02/26/21 21:00 03/08/21 19:53 Quetiapine Fumarate 50 Mg Tablet PO 300 mg BEDTIME ANGELITA Administration Quetiapine Fumarate 50 mg 02/26/21 10:07 03/09/21 08:37 Quetiapine Fumarate 50 Mg Tablet PO 50 mg DAILY ANGELITA Administration Quetiapine Fumarate 50 mg 02/27/21 16:44 03/08/21 17:36 Quetiapine Fumarate 50 Mg Tablet PO 50 mg BID PRN Administration agitation Topiramate 50 mg 02/24/21 21:00 03/08/21 19:53 Topiramate 25 Mg Tablet PO 50 mg BEDTIME ANGELITA Administration Trazodone HCl 50 mg 02/27/21 15:26 03/08/21 22:42 Trazodone Hcl 50 Mg Tablet PO 50 mg BEDTIME PRN Administration Insomnia Allergies Allergies Allergy/AdvReac Type Severity Reaction Status Date / Time oxycodone [OXYCODONE] Allergy Severe SEIZURES Unverified 08/02/20 19:22 Assessment & Plan Assessment & Plan (1) Schizoaffective disorder, bipolar type: Status: Acute Code(s): F25.0 - Schizoaffective disorder, bipolar type Assessment and Plan: Continue current regime Declines SALAZAR Planning respite admit. No change to the current treatment plan Greater than 50% of the session was spent on counseling and/or coordination of care Reason for contiued inpatient stay Substantial Risk for: inability to function and rapid decompensation
[2021-03-09 17:34] VITALS: BP 99/58; PULSE 86; RESP 16; TEMP 37.2; O2SAT 100
[2021-03-09 19:55] VITALS: BP 105/56; PULSE 83; RESP 18; O2SAT 99
[2021-03-09] MEDS: Topiramate 25 MG TABLET 50 MG PO (20:03)
[2021-03-09] MEDS: QUEtiapine Fumarate 50 MG TABLET 300 MG PO (20:03)
[2021-03-10] MEDS: hydrOXYzine HCL 25 MG TABLET PO ×2 (00:50→20:39)
[2021-03-10] MEDS: traZODone HCL 50 MG TABLET PO ×2 (00:50→20:39)
[2021-03-10 06:00] VITALS: BP 100/56; PULSE 94; RESP 16; TEMP 36.7; O2SAT 98
[2021-03-10] MEDS: HaloperidoL 5 MG TABLET PO ×2 (08:30→20:22)
[2021-03-10] MEDS: QUEtiapine Fumarate 50 MG TABLET PO (08:31)
[2021-03-10 08:32] VITALS: BP 100/56; PULSE 94
--- NOTE | 2021-03-10 17:26 | HO.PSYCHPN ---
Subjective Subjective Date of Service: 03/10/21 Reason For Visit: Bipolar Disorder Subjective Notes: Conditional Voluntary Interim History: Peterson was withdrawn and slept much of the day. She had no immediate concerns Medication Compliance: Yes Side effects from medications: No Attending Groups: No Review of Systems Acute medical concerns: No Medical Review of Systems: unchanged Mental Status Exam Mental Status Exam Patient Appearance: Appropriate Patient Orientation: Person, Place, Time and Situation Level of Consciousness: Alert Patient Behavior: Guarded and Talkative Mood Description: Suspicious and Constricted Affect Description: Constricted Patient Cognition Impaired: No Ability to Follow Directions: Good Speech Pattern: Spontaneous Speech Memory Description: Intact Hallucinations: None (denies) Delusions: Paranoid Ideation and Present Thought Process: Distracted and Rumination Thought Content: positive for [place], positive for Circumstantial, negative for Suicidal Ideation and negative for Homicidal Ideation Depressive Symptoms: Increased Anxiety, Diff. Making Decisions, Unhappiness and Difficulty Concentrating Judgement: Fair Diagnostics Vital Signs (24Hr): Vital Signs - 24 hr 03/09/21 17:34 03/09/21 19:55 03/10/21 06:00 Temperature 98.9 F 98.0 F Pulse Rate 86 83 94 Respiratory Rate 16 18 16 Blood Pressure 99/58 L 105/56 L 100/56 L Pulse Oximetry 100 99 98 03/10/21 08:32 Temperature Pulse Rate 94 Respiratory Rate Blood Pressure 100/56 L Pulse Oximetry Body Mass Index 22.4 Medications Medications Current Medications Generic Name Dose Route Start Last Admin Trade Name Freq PRN Reason Stop Dose Admin Acetaminophen 650 mg 02/27/21 15:26 Acetaminophen 325 Mg Tablet PO Q6H PRN Headache/Pain Mild Scale (1-3) Al Hydroxide/Mg Hydroxide 30 ml 02/27/21 15:26 Magnesium Hydrox/Alum Hydrox 30 Ml Oral.Susp PO Q6H PRN Heartburn/Nausea Albuterol Sulfate 2 puff 02/24/21 08:30 Albuterol Sulfate 90 Mcg 8 Gm Inhaler INHALE Q4H PRN wheezing Clonidine HCl 0.1 mg 02/28/21 21:00 03/10/21 08:32 Clonidine Hcl 0.1 Mg Tablet PO Not Given BID ANGELITA Protocol Haloperidol 5 mg 02/28/21 15:20 03/06/21 18:09 Haloperidol 5 Mg Tablet PO 5 mg TID PRN Administration auditory perceptual alteration Haloperidol 5 mg 03/01/21 21:00 03/10/21 08:30 Haloperidol 5 Mg Tablet PO 5 mg BID ANGELITA Administration Hydroxyzine HCl 25 mg 02/27/21 15:26 03/10/21 00:50 Hydroxyzine Hcl 25 Mg Tablet PO 25 mg BEDTIME PRN Administration Anxiety Lorazepam 1 mg 03/03/21 19:18 03/09/21 22:08 Lorazepam 1 Mg Tablet PO 1 mg BID PRN Administration Anxiety Magnesium Hydroxide 30 ml 02/27/21 15:26 Milk Of Magnesia 30 Ml Oral.Susp PO DAILY PRN Constipation Multivitamins/Minerals 1 tab 03/02/21 09:00 03/10/21 08:31 Multivitamin With Minerals Tablet PO 1 tab DAILY ANGELITA Administration Quetiapine Fumarate 300 mg 02/26/21 21:00 03/09/21 20:03 Quetiapine Fumarate 50 Mg Tablet PO 300 mg BEDTIME ANGELITA Administration Quetiapine Fumarate 50 mg 02/26/21 10:07 03/10/21 08:31 Quetiapine Fumarate 50 Mg Tablet PO 50 mg DAILY ANGELITA Administration Quetiapine Fumarate 50 mg 02/27/21 16:44 03/08/21 17:36 Quetiapine Fumarate 50 Mg Tablet PO 50 mg BID PRN Administration agitation Topiramate 50 mg 02/24/21 21:00 03/09/21 20:03 Topiramate 25 Mg Tablet PO 50 mg BEDTIME ANGELITA Administration Trazodone HCl 50 mg 02/27/21 15:26 03/10/21 00:50 Trazodone Hcl 50 Mg Tablet PO 50 mg BEDTIME PRN Administration Insomnia Allergies Allergies Allergy/AdvReac Type Severity Reaction Status Date / Time oxycodone [OXYCODONE] Allergy Severe SEIZURES Unverified 08/02/20 19:22 Assessment & Plan Assessment & Plan (1) Schizoaffective disorder, bipolar type: Status: Acute Code(s): F25.0 - Schizoaffective disorder, bipolar type Assessment and Plan: Continue current regime Declines SALAZAR Planning respite admit. No change to the current treatment plan Greater than 50% of the session was spent on counseling and/or coordination of care Patient educated on: diagnosis and medication risk/benefits Informed Consent: further education needed Reason for contiued inpatient stay Substantial Risk for: inability to function
[2021-03-10 18:00] VITALS: BP 92/50; PULSE 70; TEMP 36.6
[2021-03-10] MEDS: Topiramate 25 MG TABLET 50 MG PO (20:22)
[2021-03-10] MEDS: QUEtiapine Fumarate 50 MG TABLET 300 MG PO (20:22)
[2021-03-10 20:24] VITALS: BP 92/50; PULSE 110
[2021-03-11 06:15] VITALS: BP 83/46; PULSE 66; RESP 16; TEMP 36.4; O2SAT 97
[2021-03-11] MEDS: HaloperidoL 5 MG TABLET PO ×2 (08:59→21:56)
[2021-03-11] MEDS: QUEtiapine Fumarate 50 MG TABLET PO (08:59)
[2021-03-11 09:28] VITALS: BP 90/60; PULSE 84
[2021-03-11] MEDS: LORazepam 1 MG TABLET PO ×2 (11:27→19:26)
--- NOTE | 2021-03-11 14:23 | HO.PSYCHPN ---
Subjective Subjective Date of Service: 03/11/21 Reason For Visit: Bipolar Disorder Subjective Notes: Conditional Voluntary Interim History: Pt wanting to discharge to a hotel. Declining respite, [facility], calling friends for options. Met with pt and Keyona DA SILVA. Discussed the risk of leaving without a reasonable plan, given current legal charges, restraining order and history of medicine non-compliance with resulting symptoms. Options pt has presented are unsafe/inappropriate for her at the present time. Pt distraught, but understanding of reasoning. Medication Compliance: Yes Side effects from medications: No Attending Groups: No Review of Systems Review of Systems Yes all other systems are reviewed and are negative Reports behavioral changes Psychiatric: Reports anxiety, Reports behavioral changes, Reports depression, Reports hopelessness, Reports irritability and Reports suicidal ideation (denies) Mental Status Exam Mental Status Exam Patient Appearance: Appropriate Patient Orientation: Person, Place, Time and Situation Level of Consciousness: Alert Patient Behavior: Cooperative Mood Description: Suspicious, Withdrawn, Depressed, Anxious, Angry and Sad Affect Description: Flat Patient Cognition Impaired: No Ability to Follow Directions: Good Speech Pattern: Spontaneous Speech Memory Description: Episodic Impaired Hallucinations: None (denies) Delusions: Being Controlled and Paranoid Ideation Thought Process: Illogical, Distracted and Rumination Thought Content: positive for [place], positive for Circumstantial, positive for Perseveration, positive for Suicidal Ideation (denies) and positive for Homicidal Ideation (denies) Depressive Symptoms: Increased Anxiety, Diff. Making Decisions, Increased Irritability, Hopelessness, Unhappiness and Thoughts of /Suicide (denies) Judgement: Fair Diagnostics Vital Signs (24Hr): Vital Signs - 24 hr 03/10/21 18:00 03/10/21 20:24 03/11/21 06:15 Temperature 97.8 F 97.5 F Pulse Rate 70 110 H 66 Respiratory Rate 16 Blood Pressure 92/50 L 92/50 L 83/46 L Pulse Oximetry 97 03/11/21 09:28 Temperature Pulse Rate 84 Respiratory Rate Blood Pressure 90/60 Pulse Oximetry Body Mass Index 22.4 Medications Medications Current Medications Generic Name Dose Route Start Last Admin Trade Name Freq PRN Reason Stop Dose Admin Acetaminophen 650 mg 02/27/21 15:26 Acetaminophen 325 Mg Tablet PO Q6H PRN Headache/Pain Mild Scale (1-3) Al Hydroxide/Mg Hydroxide 30 ml 02/27/21 15:26 Magnesium Hydrox/Alum Hydrox 30 Ml Oral.Susp PO Q6H PRN Heartburn/Nausea Albuterol Sulfate 2 puff 02/24/21 08:30 Albuterol Sulfate 90 Mcg 8 Gm Inhaler INHALE Q4H PRN wheezing Clonidine HCl 0.1 mg 02/28/21 21:00 03/11/21 09:28 Clonidine Hcl 0.1 Mg Tablet PO Not Given BID [facility] Protocol Haloperidol 5 mg 02/28/21 15:20 03/06/21 18:09 Haloperidol 5 Mg Tablet PO 5 mg TID PRN Administration auditory perceptual alteration Haloperidol 5 mg 03/01/21 21:00 03/11/21 08:59 Haloperidol 5 Mg Tablet PO 5 mg BID ANGELITA Administration Hydroxyzine HCl 25 mg 02/27/21 15:26 03/10/21 20:39 Hydroxyzine Hcl 25 Mg Tablet PO 25 mg BEDTIME PRN Administration Anxiety Lorazepam 1 mg 03/03/21 19:18 03/11/21 11:27 Lorazepam 1 Mg Tablet PO 1 mg BID PRN Administration Anxiety Magnesium Hydroxide 30 ml 02/27/21 15:26 Milk Of Magnesia 30 Ml Oral.Susp PO DAILY PRN Constipation Multivitamins/Minerals 1 tab 03/02/21 09:00 03/11/21 08:59 Multivitamin With Minerals Tablet PO 1 tab DAILY ANGELITA Administration Quetiapine Fumarate 300 mg 02/26/21 21:00 03/10/21 20:22 Quetiapine Fumarate 50 Mg Tablet PO 300 mg BEDTIME ANGELITA Administration Quetiapine Fumarate 50 mg 02/26/21 10:07 03/11/21 08:59 Quetiapine Fumarate 50 Mg Tablet PO 50 mg DAILY ANGELITA Administration Quetiapine Fumarate 50 mg 02/27/21 16:44 03/08/21 17:36 Quetiapine Fumarate 50 Mg Tablet PO 50 mg BID PRN Administration agitation Topiramate 50 mg 02/24/21 21:00 03/10/21 20:22 Topiramate 25 Mg Tablet PO 50 mg BEDTIME ANGELITA Administration Trazodone HCl 50 mg 02/27/21 15:26 03/10/21 20:39 Trazodone Hcl 50 Mg Tablet PO 50 mg BEDTIME PRN Administration Insomnia Allergies Allergies Allergy/AdvReac Type Severity Reaction Status Date / Time oxycodone [OXYCODONE] Allergy Severe SEIZURES Unverified 08/02/20 19:22 Assessment & Plan Assessment & Plan (1) Schizoaffective disorder, bipolar type: Status: Acute Code(s): F25.0 - Schizoaffective disorder, bipolar type Assessment and Plan: Continue current regime Declines SALAZAR Pt requesting several fragmented discharge plans. Team is attempting to design a safe plan to help pt with stability and success. Greater than 50% of the session was spent on counseling and/or coordination of care Reason for contiued inpatient stay Substantial Risk for: harm to self, harm to others, inability to function and rapid decompensation
[2021-03-11 18:00] VITALS: BP 113/72; PULSE 77; TEMP 36.1
[2021-03-11] MEDS: QUEtiapine Fumarate 50 MG TABLET 300 MG PO (21:55)
[2021-03-11 21:56] VITALS: BP 103/58; PULSE 73
[2021-03-11] MEDS: cloNIDine HCL 0.1 MG TABLET PO (21:56)
[2021-03-11] MEDS: Nicotine 21 MG PATCH.TD24 TRANSDERMA (22:05)
[2021-03-11] MEDS: Topiramate 25 MG TABLET 50 MG PO (22:07)
[2021-03-12] MEDS: QUEtiapine Fumarate 50 MG TABLET PO ×3 (00:21→13:15)
[2021-03-12] MEDS: hydrOXYzine HCL 25 MG TABLET PO (00:21)
[2021-03-12] MEDS: traZODone HCL 50 MG TABLET PO ×2 (00:21→23:19)
[2021-03-12 06:25] VITALS: BP 93/50; PULSE 69; RESP 16; TEMP 36.6; O2SAT 99
[2021-03-12] MEDS: HaloperidoL 5 MG TABLET PO ×3 (08:23→21:44)
[2021-03-12] MEDS: Nicotine 21 MG PATCH.TD24 TRANSDERMA (08:24)
[2021-03-12 08:25] VITALS: BP 93/47; PULSE 65
[2021-03-12] MEDS: LORazepam 1 MG TABLET PO ×2 (12:17→17:33)
--- NOTE | 2021-03-12 13:47 | HO.PSYCHPN ---
Subjective Subjective Date of Service: 03/12/21 Reason For Visit: Bipolar Disorder Subjective Notes: Conditional Voluntary Interim History: Pt continues to request discharge. [facility] has declined referral for respite. Pt asks for ST respite with [facility]. [facility] believes they can work with pt in short term respite, in transfer to nursing home and in community. Pt reports she will continue with medications and out patient appointments. Pt is managing stress with prn medications and appropriately with discussion. Review of Systems Review of Systems Yes all other systems are reviewed and are negative Reports behavioral changes Psychiatric: Reports anxiety, Reports behavioral changes, Reports homicidal ideation (denies) and Reports suicidal ideation (denies) Mental Status Exam Mental Status Exam Patient Appearance: Appropriate Patient Orientation: Person, Place, Time and Situation Level of Consciousness: Alert Patient Behavior: Talkative and Crying Mood Description: Blunted Affect Description: Blunted Patient Cognition Impaired: No Ability to Follow Directions: Good Speech Pattern: Spontaneous Speech Memory Description: Intact Hallucinations: None Delusions: Not Present Thought Process: Intact Thought Content: positive for Intact, positive for [place] and positive for Circumstantial Depressive Symptoms: Increased Anxiety Judgement: Good Diagnostics Vital Signs (24Hr): Vital Signs - 24 hr 03/11/21 18:00 03/11/21 21:56 03/12/21 06:25 Temperature 97.0 F 97.8 F Pulse Rate 77 73 69 Respiratory Rate 16 Blood Pressure 113/72 103/58 L 93/50 L Pulse Oximetry 99 03/12/21 08:25 Temperature Pulse Rate 65 Respiratory Rate Blood Pressure 93/47 L Pulse Oximetry Body Mass Index 22.4 Medications Medications Current Medications Generic Name Dose Route Start Last Admin Trade Name Milesq PRN Reason Stop Dose Admin Acetaminophen 650 mg 02/27/21 15:26 Acetaminophen 325 Mg Tablet PO Q6H PRN Headache/Pain Mild Scale (1-3) Al Hydroxide/Mg Hydroxide 30 ml 02/27/21 15:26 Magnesium Hydrox/Alum Hydrox 30 Ml Oral.Susp PO Q6H PRN Heartburn/Nausea Albuterol Sulfate 2 puff 02/24/21 08:30 Albuterol Sulfate 90 Mcg 8 Gm Inhaler INHALE Q4H PRN wheezing Clonidine HCl 0.1 mg 02/28/21 21:00 03/12/21 08:25 Clonidine Hcl 0.1 Mg Tablet PO Not Given BID ANGELITA Protocol Haloperidol 5 mg 02/28/21 15:20 03/12/21 13:15 Haloperidol 5 Mg Tablet PO 5 mg TID PRN Administration auditory perceptual alteration Haloperidol 5 mg 03/01/21 21:00 03/12/21 08:23 Haloperidol 5 Mg Tablet PO 5 mg BID ANGELITA Administration Hydroxyzine HCl 25 mg 02/27/21 15:26 03/12/21 00:21 Hydroxyzine Hcl 25 Mg Tablet PO 25 mg BEDTIME PRN Administration Anxiety Lorazepam 1 mg 03/03/21 19:18 03/12/21 12:17 Lorazepam 1 Mg Tablet PO 1 mg BID PRN Administration Anxiety Magnesium Hydroxide 30 ml 02/27/21 15:26 Milk Of Magnesia 30 Ml Oral.Susp PO DAILY PRN Constipation Multivitamins/Minerals 1 tab 03/02/21 09:00 03/12/21 08:23 Multivitamin With Minerals Tablet PO 1 tab DAILY ANGELITA Administration Nicotine 21 mg 03/11/21 16:30 03/12/21 08:24 Nicotine 21 Mg Patch.Td24 TRANSDERMA 21 mg DAILY ANGELITA Administration Nicotine Polacrilex 4 mg 03/11/21 16:23 Nicotine Polacrilex 2 Mg Gum BUCCAL Q2H PRN Nicotine Cravings Quetiapine Fumarate 300 mg 02/26/21 21:00 03/11/21 21:55 Quetiapine Fumarate 50 Mg Tablet PO 300 mg BEDTIME ANGELITA Administration Quetiapine Fumarate 50 mg 02/26/21 10:07 03/12/21 08:23 Quetiapine Fumarate 50 Mg Tablet PO 50 mg DAILY ANGELITA Administration Quetiapine Fumarate 50 mg 02/27/21 16:44 03/12/21 13:15 Quetiapine Fumarate 50 Mg Tablet PO 50 mg BID PRN Administration agitation Topiramate 50 mg 02/24/21 21:00 03/11/21 22:07 Topiramate 25 Mg Tablet PO 50 mg BEDTIME ANGELITA Administration Trazodone HCl 50 mg 02/27/21 15:26 03/12/21 00:21 Trazodone Hcl 50 Mg Tablet PO 50 mg BEDTIME PRN Administration Insomnia Allergies Allergies Allergy/AdvReac Type Severity Reaction Status Date / Time oxycodone [OXYCODONE] Allergy Severe SEIZURES Unverified 08/02/20 19:22 Assessment & Plan Assessment & Plan (1) Schizoaffective disorder, bipolar type: Status: Acute Code(s): F25.0 - Schizoaffective disorder, bipolar type Assessment and Plan: Continue current regime Declines SALAZAR Pt requesting respite. [facility] has declined. Keyona Sierra [facility] has approached [facility]. Greater than 50% of the session was spent on counseling and/or coordination of care Reason for contiued inpatient stay Substantial Risk for: harm to self, harm to others, inability to function and rapid decompensation
[2021-03-12 21:35] VITALS: BP 91/55; PULSE 84; TEMP 36.4
[2021-03-12] MEDS: Topiramate 25 MG TABLET 50 MG PO (21:44)
[2021-03-12] MEDS: QUEtiapine Fumarate 50 MG TABLET 300 MG PO (21:44)
[2021-03-12 21:45] VITALS: BP 91/55; PULSE 84
[2021-03-13] MEDS: Nicotine 21 MG PATCH.TD24 TRANSDERMA (08:56)
[2021-03-13 08:57] VITALS: BP 111/63; PULSE 98
[2021-03-13] MEDS: cloNIDine HCL 0.1 MG TABLET PO (08:57)
[2021-03-13] MEDS: QUEtiapine Fumarate 50 MG TABLET PO (08:57)
[2021-03-13] MEDS: HaloperidoL 5 MG TABLET PO ×2 (08:58→20:59)
--- NOTE | 2021-03-13 11:38 | P.PNPSI_ITS ---
Subjective Subjective Date of Service: 03/13/21 Reason For Visit: Bipolar Disorder Subjective Notes: Conditional Voluntary Interim History: Pt isolative today, not wanting to talk about anything except discharge. Respite application submitted. 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 [employer] application pending-[facility] has told team they will take responsiblity if pt leaves respite once in placement. Pt prefers to go to a hotel, with friends, but has no solid plan for follow up. She refuses SALAZAR, reports she will take PO meds but has stopped meds in the past. She reports she has no symptoms of illness today. Medication Compliance: Yes Side effects from medications: No Attending Groups: No Review of Systems Review of Systems Yes all other systems are reviewed and are negative (denies) Psychiatric: Reports depression and Reports hopelessness Mental Status Exam Mental Status Exam Patient Appearance: Appropriate Patient Orientation: Person, Place, Time and Situation Level of Consciousness: Awake and Alert Patient Behavior: Appropriate, Talkative and Cooperative Mood Description: Constricted Affect Description: Constricted Patient Cognition Impaired: No Ability to Follow Directions: Good Speech Pattern: Spontaneous Speech Memory Description: Remote Impaired and Episodic Impaired Hallucinations: None (denies) Delusions: Paranoid Ideation Thought Process: Goal Oriented Thought Content: positive for [place], positive for Circumstantial, positive for Goal Oriented, positive for Suicidal Ideation (denies) and positive for Homicidal Ideation (denies) Depressive Symptoms: Diff. Making Decisions and Thoughts of /Suicide (denies) Judgement: Fair Diagnostics Vital Signs (24Hr): Vital Signs - 24 hr 03/12/21 21:35 03/12/21 21:45 03/13/21 08:57 Temperature 97.5 F Pulse Rate 84 84 98 Blood Pressure 91/55 L 91/55 L 111/63 Body Mass Index 22.4 Medications Medications Current Medications Generic Name Dose Route Start Last Admin Trade Name Freq PRN Reason Stop Dose Admin Acetaminophen 650 mg 02/27/21 15:26 Acetaminophen 325 Mg Tablet PO Q6H PRN Headache/Pain Mild Scale (1-3) Al Hydroxide/Mg Hydroxide 30 ml 02/27/21 15:26 Magnesium Hydrox/Alum Hydrox 30 Ml Oral.Susp PO Q6H PRN Heartburn/Nausea Albuterol Sulfate 2 puff 02/24/21 08:30 Albuterol Sulfate 90 Mcg 8 Gm Inhaler INHALE Q4H PRN wheezing Clonidine HCl 0.1 mg 02/28/21 21:00 03/13/21 08:57 Clonidine Hcl 0.1 Mg Tablet PO 0.1 mg BID ANGELITA Administration Protocol Haloperidol 5 mg 02/28/21 15:20 03/12/21 13:15 Haloperidol 5 Mg Tablet PO 5 mg TID PRN Administration auditory perceptual alteration Haloperidol 5 mg 03/01/21 21:00 03/13/21 08:58 Haloperidol 5 Mg Tablet PO 5 mg BID ANGELITA Administration Hydroxyzine HCl 25 mg 02/27/21 15:26 03/12/21 00:21 Hydroxyzine Hcl 25 Mg Tablet PO 25 mg BEDTIME PRN Administration Anxiety Lorazepam 1 mg 03/03/21 19:18 03/12/21 17:33 Lorazepam 1 Mg Tablet PO 1 mg BID PRN Administration Anxiety Magnesium Hydroxide 30 ml 02/27/21 15:26 Milk Of Magnesia 30 Ml Oral.Susp PO DAILY PRN Constipation Multivitamins/Minerals 1 tab 03/02/21 09:00 03/13/21 08:57 Multivitamin With Minerals Tablet PO 1 tab DAILY ANGELITA Administration Nicotine 21 mg 03/11/21 16:30 03/13/21 08:56 Nicotine 21 Mg Patch.Td24 TRANSDERMA 21 mg DAILY ANGELITA Administration Nicotine Polacrilex 4 mg 03/11/21 16:23 Nicotine Polacrilex 2 Mg Gum BUCCAL Q2H PRN Nicotine Cravings Quetiapine Fumarate 300 mg 02/26/21 21:00 03/12/21 21:44 Quetiapine Fumarate 50 Mg Tablet PO 300 mg BEDTIME ANGELITA Administration Quetiapine Fumarate 50 mg 02/26/21 10:07 03/13/21 08:57 Quetiapine Fumarate 50 Mg Tablet PO 50 mg DAILY ANGELITA Administration Quetiapine Fumarate 50 mg 02/27/21 16:44 03/12/21 13:15 Quetiapine Fumarate 50 Mg Tablet PO 50 mg BID PRN Administration agitation Topiramate 50 mg 02/24/21 21:00 03/12/21 21:44 Topiramate 25 Mg Tablet PO 50 mg BEDTIME ANGELITA Administration Trazodone HCl 50 mg 02/27/21 15:26 03/12/21 23:19 Trazodone Hcl 50 Mg Tablet PO 50 mg BEDTIME PRN Administration Insomnia Allergies Allergies Allergy/AdvReac Type Severity Reaction Status Date / Time oxycodone [OXYCODONE] Allergy Severe SEIZURES Unverified 08/02/20 19:22 Assessment & Plan Assessment & Plan (1) Schizoaffective disorder, bipolar type: Status: Acute Code(s): F25.0 - Schizoaffective disorder, bipolar type Assessment and Plan: Continue current regime Declines SALAZAR Pt requesting respite. [facility] has declined. Keyona Sierra [facility] has approached [employer]. Application submitted. Greater than 50% of the session was spent on counseling and/or coordination of care Reason for contiued inpatient stay Substantial Risk for: harm to self, harm to others, inability to function and rapid decompensation
[2021-03-13 18:00] VITALS: BP 90/55; PULSE 93; TEMP 36.6
[2021-03-13] MEDS: LORazepam 1 MG TABLET PO (19:14)
[2021-03-13 20:59] VITALS: BP 90/55; PULSE 93
[2021-03-13] MEDS: Topiramate 25 MG TABLET 50 MG PO (20:59)
[2021-03-13] MEDS: QUEtiapine Fumarate 50 MG TABLET 300 MG PO (21:00)
[2021-03-13] MEDS: hydrOXYzine HCL 25 MG TABLET PO (22:44)
[2021-03-13] MEDS: traZODone HCL 50 MG TABLET PO (22:44)
[2021-03-14 07:00] VITALS: BMI 22.1
[2021-03-14 09:10] VITALS: BP 108/60; PULSE 100
[2021-03-14] MEDS: cloNIDine HCL 0.1 MG TABLET PO (09:10)
[2021-03-14] MEDS: HaloperidoL 5 MG TABLET PO ×2 (09:10→21:44)
[2021-03-14] MEDS: QUEtiapine Fumarate 50 MG TABLET PO ×2 (09:11→11:24)
[2021-03-14] MEDS: Nicotine 21 MG PATCH.TD24 TRANSDERMA (09:12)
--- NOTE | 2021-03-14 11:01 | P.PNPSI_ITS ---
Subjective Subjective Date of Service: 03/14/21 Reason For Visit: Bipolar Disorder Subjective Notes: Conditional Voluntary Interim History: I am going to live with my boyfriend Troy in [place]. Troy does not want you to call him. He is busy and will not talk with anyone here. I have decided I do not want [facility] involved with me. I will not go to respite. I want to be discharged [place]. Pt refusing a safe reasonable discharge plan. Attempted to call her boyfriend Troy x without response to discuss the validity and safety. Team reports he has a restraining order on pt as does her step father and mother. Discussed trial of SALAZAR-discussed her compliance history, legal issues and history and increased risk with non compliance. She continues to decline. Medication Compliance: Yes Side effects from medications: No Attending Groups: No Review of Systems Review of Systems Yes all other systems are reviewed and are negative (denies) Psychiatric: Reports anxiety, Reports difficulty concentrating, Reports paranoia, Reports hallucinations and Reports suicidal ideation (denies) Mental Status Exam Mental Status Exam Patient Appearance: Appropriate Patient Orientation: Person, Place, Time and Situation Level of Consciousness: Restless and Alert Patient Behavior: Guarded, Talkative, Suspicious, Restless, Anxious, Fearful, Resistive to Care, Avoidant, Distractible, Isolative and Good Eye Contact Mood Description: Constricted Affect Description: Constricted Patient Cognition Impaired: No Ability to Follow Directions: Fair Speech Pattern: Clear, Perseverating, Spontaneous Speech and Soft-Spoken Memory Description: Episodic Impaired Hallucinations: None (denies) Delusions: Not Present (no overt sx.) Thought Process: Distracted and Goal Oriented Thought Content: positive for [place], positive for Circumstantial, positive for Goal Oriented, positive for Perseveration and positive for Suicidal Ideation (denies) Depressive Symptoms: Diff. Making Decisions, Crying Spells, Unhappiness and Thoughts of /Suicide (denies) Abnormal Motor Activity Signs and Symptoms: Restlessness Judgement: Fair Diagnostics Vital Signs (24Hr): Vital Signs - 24 hr 03/13/21 18:00 03/13/21 20:59 03/14/21 09:10 Temperature 97.9 F Pulse Rate 93 93 100 Blood Pressure 90/55 L 90/55 L 108/60 Body Mass Index 22.1 Medications Medications Current Medications Generic Name Dose Route Start Last Admin Trade Name Freq PRN Reason Stop Dose Admin Acetaminophen 650 mg 02/27/21 15:26 Acetaminophen 325 Mg Tablet PO Q6H PRN Headache/Pain Mild Scale (1-3) Al Hydroxide/Mg Hydroxide 30 ml 02/27/21 15:26 Magnesium Hydrox/Alum Hydrox 30 Ml Oral.Susp PO Q6H PRN Heartburn/Nausea Albuterol Sulfate 2 puff 02/24/21 08:30 Albuterol Sulfate 90 Mcg 8 Gm Inhaler INHALE Q4H PRN wheezing Clonidine HCl 0.1 mg 02/28/21 21:00 03/14/21 09:10 Clonidine Hcl 0.1 Mg Tablet PO 0.1 mg BID ANGELITA Administration Protocol Haloperidol 5 mg 02/28/21 15:20 03/12/21 13:15 Haloperidol 5 Mg Tablet PO 5 mg TID PRN Administration auditory perceptual alteration Haloperidol 5 mg 03/01/21 21:00 03/14/21 09:10 Haloperidol 5 Mg Tablet PO 5 mg BID ANGELITA Administration Hydroxyzine HCl 25 mg 02/27/21 15:26 03/13/21 22:44 Hydroxyzine Hcl 25 Mg Tablet PO 25 mg BEDTIME PRN Administration Anxiety Lorazepam 1 mg 03/03/21 19:18 03/13/21 19:14 Lorazepam 1 Mg Tablet PO 1 mg BID PRN Administration Anxiety Magnesium Hydroxide 30 ml 02/27/21 15:26 Milk Of Magnesia 30 Ml Oral.Susp PO DAILY PRN Constipation Multivitamins/Minerals 1 tab 03/02/21 09:00 03/14/21 09:11 Multivitamin With Minerals Tablet PO 1 tab DAILY ANGELITA Administration Nicotine 21 mg 03/11/21 16:30 03/14/21 09:12 Nicotine 21 Mg Patch.Td24 TRANSDERMA 21 mg DAILY ANGELITA Administration Nicotine Polacrilex 4 mg 03/11/21 16:23 Nicotine Polacrilex 2 Mg Gum BUCCAL Q2H PRN Nicotine Cravings Quetiapine Fumarate 300 mg 02/26/21 21:00 03/13/21 21:00 Quetiapine Fumarate 50 Mg Tablet PO 300 mg BEDTIME ANGELITA Administration Quetiapine Fumarate 50 mg 02/26/21 10:07 03/14/21 09:11 Quetiapine Fumarate 50 Mg Tablet PO 50 mg DAILY ANGELITA Administration Quetiapine Fumarate 50 mg 02/27/21 16:44 03/12/21 13:15 Quetiapine Fumarate 50 Mg Tablet PO 50 mg BID PRN Administration agitation Topiramate 50 mg 02/24/21 21:00 03/13/21 20:59 Topiramate 25 Mg Tablet PO 50 mg BEDTIME ANGELITA Administration Trazodone HCl 50 mg 02/27/21 15:26 03/13/21 22:44 Trazodone Hcl 50 Mg Tablet PO 50 mg BEDTIME PRN Administration Insomnia Allergies Allergies Allergy/AdvReac Type Severity Reaction Status Date / Time oxycodone [OXYCODONE] Allergy Severe SEIZURES Unverified 08/02/20 19:22 Assessment & Plan Assessment & Plan (1) Schizoaffective disorder, bipolar type: Status: Acute Code(s): F25.0 - Schizoaffective disorder, bipolar type Assessment and Plan: Continue current regime Declines SALAZAR Pt requesting discharge to her boyfriend Troy in [place]. Unable to reach Troy. Team reports hx of restraining order against pt. Pt now declines respite, [facility] services and asks for outright discharge to travel to [place]. Discussed with pt this being not a stable safe plan. I have asked her to reconsider. Will not discharge today and will review with team on 03/15/21. Greater than 50% of the session was spent on counseling and/or coordination of care Reason for contiued inpatient stay Substantial Risk for: harm to self, harm to others, inability to function and rapid decompensation
[2021-03-14] MEDS: LORazepam 1 MG TABLET PO (11:24)
[2021-03-14 17:07] VITALS: BP 127/76; PULSE 111; RESP 16; TEMP 37.1; O2SAT 98
[2021-03-14] MEDS: Topiramate 25 MG TABLET 50 MG PO (21:44)
[2021-03-14] MEDS: QUEtiapine Fumarate 50 MG TABLET 300 MG PO (21:44)
[2021-03-14] MEDS: traZODone HCL 50 MG TABLET PO (21:45)
[2021-03-14] MEDS: hydrOXYzine HCL 25 MG TABLET PO (21:45)
[2021-03-15 08:44] VITALS: BP 102/60; PULSE 82; RESP 12; TEMP 36.8; O2SAT 8
[2021-03-15 09:23] VITALS: BP 102/60; PULSE 82
[2021-03-15] MEDS: QUEtiapine Fumarate 50 MG TABLET PO ×2 (09:23→15:06)
[2021-03-15] MEDS: cloNIDine HCL 0.1 MG TABLET PO (09:23)
[2021-03-15] MEDS: HaloperidoL 5 MG TABLET PO ×2 (09:23→20:51)
[2021-03-15] MEDS: Nicotine 21 MG PATCH.TD24 TRANSDERMA (09:24)
--- NOTE | 2021-03-15 12:49 | HO.PSYCHPN ---
Subjective Subjective Date of Service: 03/15/21 Reason For Visit: Bipolar Disorder Subjective Notes: Conditional Voluntary Interim History: Anxious to discharge, remains without a safe, stable plan. Today, pt asks to discharge to a residential. Met with pt and [place] DA SILVA. Pt admits she has never been to a residential in the past. [facility] is working with pt on housing options. Pt declined by [facility] resp[facility], being considered by [facility] respite but without a commitment yet. Discussed with pt remaining in pt over the weekend and re-evaluating appropriate options on Thursday. Court case remains active, four restraining orders we believe are in place against pt . This combination along with refusal of SALAZAR, hx of poor medication compliance yields a plan which is not safe for [place]. She states that she understands and will work with the team. Medication Compliance: Yes Side effects from medications: No Attending Groups: Yes Review of Systems Review of Systems Yes all other systems are reviewed and are negative (denies) Psychiatric: Reports anxiety and Reports hopelessness Mental Status Exam Mental Status Exam Patient Appearance: Appropriate Patient Orientation: Person, Place, Time and Situation Level of Consciousness: Alert Patient Behavior: Appropriate, Guarded, Talkative, Cooperative, Suspicious, Anxious, Distractible, Good Eye Contact and Impulsive Mood Description: Anxious and Apprehensive Affect Description: Anxious and Apprehensive Patient Cognition Impaired: No Ability to Follow Directions: Good Speech Pattern: Spontaneous Speech Memory Description: Episodic Impaired Hallucinations: None (denies, however appears to respond at times) Thought Process: Distracted Thought Content: positive for Circumstantial and positive for Goal Oriented Depressive Symptoms: Increased Anxiety, Diff. Making Decisions, Crying Spells, Hopelessness, Unhappiness and Difficulty Concentrating Judgement: Fair Diagnostics Vital Signs (24Hr): Vital Signs - 24 hr 03/14/21 17:07 03/15/21 08:44 03/15/21 09:23 Temperature 98.7 F 98.3 F Pulse Rate 111 H 82 82 Respiratory Rate 16 12 Blood Pressure 127/76 102/60 102/60 Pulse Oximetry 98 8 L Body Mass Index 22.1 Medications Medications Current Medications Generic Name Dose Route Start Last Admin Trade Name Freq PRN Reason Stop Dose Admin Acetaminophen 650 mg 02/27/21 15:26 Acetaminophen 325 Mg Tablet PO Q6H PRN Headache/Pain Mild Scale (1-3) Al Hydroxide/Mg Hydroxide 30 ml 02/27/21 15:26 Magnesium Hydrox/Alum Hydrox 30 Ml Oral.Susp PO Q6H PRN Heartburn/Nausea Albuterol Sulfate 2 puff 02/24/21 08:30 Albuterol Sulfate 90 Mcg 8 Gm Inhaler INHALE Q4H PRN wheezing Clonidine HCl 0.1 mg 02/28/21 21:00 03/15/21 09:23 Clonidine Hcl 0.1 Mg Tablet PO 0.1 mg BID ANGELITA Administration Protocol Haloperidol 5 mg 02/28/21 15:20 03/12/21 13:15 Haloperidol 5 Mg Tablet PO 5 mg TID PRN Administration auditory perceptual alteration Haloperidol 5 mg 03/01/21 21:00 03/15/21 09:23 Haloperidol 5 Mg Tablet PO 5 mg BID ANGELITA Administration Hydroxyzine HCl 25 mg 02/27/21 15:26 03/14/21 21:45 Hydroxyzine Hcl 25 Mg Tablet PO 25 mg BEDTIME PRN Administration Anxiety Lorazepam 1 mg 03/03/21 19:18 03/14/21 11:24 Lorazepam 1 Mg Tablet PO 1 mg BID PRN Administration Anxiety Magnesium Hydroxide 30 ml 02/27/21 15:26 Milk Of Magnesia 30 Ml Oral.Susp PO DAILY PRN Constipation Multivitamins/Minerals 1 tab 03/02/21 09:00 03/15/21 09:22 Multivitamin With Minerals Tablet PO 1 tab DAILY ANGELITA Administration Nicotine 21 mg 03/11/21 16:30 03/15/21 09:24 Nicotine 21 Mg Patch.Td24 TRANSDERMA 21 mg DAILY ANGELITA Administration Nicotine Polacrilex 4 mg 03/11/21 16:23 Nicotine Polacrilex 2 Mg Gum BUCCAL Q2H PRN Nicotine Cravings Quetiapine Fumarate 300 mg 02/26/21 21:00 03/14/21 21:44 Quetiapine Fumarate 50 Mg Tablet PO 300 mg BEDTIME ANGELITA Administration Quetiapine Fumarate 50 mg 02/26/21 10:07 03/15/21 09:23 Quetiapine Fumarate 50 Mg Tablet PO 50 mg DAILY ANGELITA Administration Quetiapine Fumarate 50 mg 02/27/21 16:44 03/14/21 11:24 Quetiapine Fumarate 50 Mg Tablet PO 50 mg BID PRN Administration agitation Topiramate 50 mg 02/24/21 21:00 03/14/21 21:44 Topiramate 25 Mg Tablet PO 50 mg BEDTIME ANGELITA Administration Trazodone HCl 50 mg 02/27/21 15:26 03/14/21 21:45 Trazodone Hcl 50 Mg Tablet PO 50 mg BEDTIME PRN Administration Insomnia Allergies Allergies Allergy/AdvReac Type Severity Reaction Status Date / Time oxycodone [OXYCODONE] Allergy Severe SEIZURES Unverified 08/02/20 19:22 Assessment & Plan Assessment & Plan (1) Schizoaffective disorder, bipolar type: Status: Acute Code(s): F25.0 - Schizoaffective disorder, bipolar type Assessment and Plan: Continue current regime Declines SALAZAR Pt requesting discharge to a residential. Today, will accept [facility] assist and housing assist Discussed with pt this being not a stable safe plan. Mood lability with hx of arrest and 4 current restraining orders. Hx of med noncompliance in community. I have asked her to again reconsider. Will not discharge today and will review options being pursued on 03/18-which includes [facility] respite bed, residential ([facility] bed) Greater than 50% of the session was spent on counseling and/or coordination of care Reason for contiued inpatient stay Substantial Risk for: harm to self, harm to others, inability to function and rapid decompensation
[2021-03-15] MEDS: LORazepam 1 MG TABLET PO (15:06)
[2021-03-15 18:00] VITALS: BP 91/54; PULSE 85; TEMP 36.2
[2021-03-15 20:47] VITALS: BP 91/54; PULSE 85
[2021-03-15] MEDS: Topiramate 25 MG TABLET 50 MG PO (20:50)
[2021-03-15] MEDS: hydrOXYzine HCL 25 MG TABLET PO (20:50)
[2021-03-15] MEDS: traZODone HCL 50 MG TABLET PO (20:51)
[2021-03-15] MEDS: QUEtiapine Fumarate 50 MG TABLET 300 MG PO (20:51)
[2021-03-16 06:35] VITALS: BP 80/44; PULSE 68; RESP 16; TEMP 36.5; O2SAT 99
[2021-03-16 08:31] VITALS: BP 100/58; PULSE 80
[2021-03-16] MEDS: HaloperidoL 5 MG TABLET PO ×2 (08:31→20:11)
[2021-03-16] MEDS: QUEtiapine Fumarate 50 MG TABLET PO ×2 (08:31→15:00)
[2021-03-16] MEDS: Nicotine 21 MG PATCH.TD24 TRANSDERMA (08:31)
--- NOTE | 2021-03-16 11:17 | HO.PSYCHPN ---
Subjective Subjective Date of Service: 03/16/21 Reason For Visit: Bipolar Disorder Interim History: Chart reviewed; case discussed with team. Vitals reviewed: hypotensive Pt had little to say other than she is OK and denies any complaints and does not need anything. Medication Compliance: Yes Mental Status Exam Mental Status Exam Narrative: Appearance: Appropriate, casual dressed, hair colored Patient Orientation: Person, Place, Time Level of Consciousness: Alert Patient Behavior: calm; superficially cooperative Mood Description: OK Affect Description: flat to constricted Ability to Follow Directions: Good Speech: normal volume, rate, prosody Hallucinations: denies Thought Process: goal oriented, concrete Thought Content: paucity Judgement: impaired Diagnostics Vital Signs (24Hr): Vital Signs - 24 hr 03/15/21 18:00 03/15/21 20:47 03/16/21 06:35 Temperature 97.2 F 97.7 F Pulse Rate 85 85 68 Respiratory Rate 16 Blood Pressure 91/54 L 91/54 L 80/44 L Pulse Oximetry 99 03/16/21 08:31 Temperature Pulse Rate 80 Respiratory Rate Blood Pressure 100/58 L Pulse Oximetry Body Mass Index 22.1 Medications Medications Current Medications Generic Name Dose Route Start Last Admin Trade Name Freq PRN Reason Stop Dose Admin Acetaminophen 650 mg 02/27/21 15:26 Acetaminophen 325 Mg Tablet PO Q6H PRN Headache/Pain Mild Scale (1-3) Al Hydroxide/Mg Hydroxide 30 ml 02/27/21 15:26 Magnesium Hydrox/Alum Hydrox 30 Ml Oral.Susp PO Q6H PRN Heartburn/Nausea Albuterol Sulfate 2 puff 02/24/21 08:30 Albuterol Sulfate 90 Mcg 8 Gm Inhaler INHALE Q4H PRN wheezing Clonidine HCl 0.1 mg 02/28/21 21:00 03/16/21 08:31 Clonidine Hcl 0.1 Mg Tablet PO Not Given BID ANGELITA Protocol Haloperidol 5 mg 02/28/21 15:20 03/12/21 13:15 Haloperidol 5 Mg Tablet PO 5 mg TID PRN Administration auditory perceptual alteration Haloperidol 5 mg 03/01/21 21:00 03/16/21 08:31 Haloperidol 5 Mg Tablet PO 5 mg BID ANGELITA Administration Hydroxyzine HCl 25 mg 02/27/21 15:26 03/15/21 20:50 Hydroxyzine Hcl 25 Mg Tablet PO 25 mg BEDTIME PRN Administration Anxiety Lorazepam 1 mg 03/03/21 19:18 03/15/21 15:06 Lorazepam 1 Mg Tablet PO 1 mg BID PRN Administration Anxiety Magnesium Hydroxide 30 ml 02/27/21 15:26 Milk Of Magnesia 30 Ml Oral.Susp PO DAILY PRN Constipation Multivitamins/Minerals 1 tab 03/02/21 09:00 03/16/21 08:31 Multivitamin With Minerals Tablet PO 1 tab DAILY ANGELITA Administration Nicotine 21 mg 03/11/21 16:30 03/16/21 08:31 Nicotine 21 Mg Patch.Td24 TRANSDERMA 21 mg DAILY ANGELITA Administration Nicotine Polacrilex 4 mg 03/11/21 16:23 Nicotine Polacrilex 2 Mg Gum BUCCAL Q2H PRN Nicotine Cravings Quetiapine Fumarate 300 mg 02/26/21 21:00 03/15/21 20:51 Quetiapine Fumarate 50 Mg Tablet PO 300 mg BEDTIME ANGELITA Administration Quetiapine Fumarate 50 mg 02/26/21 10:07 03/16/21 08:31 Quetiapine Fumarate 50 Mg Tablet PO 50 mg DAILY ANGELITA Administration Quetiapine Fumarate 50 mg 02/27/21 16:44 03/15/21 15:06 Quetiapine Fumarate 50 Mg Tablet PO 50 mg BID PRN Administration agitation Topiramate 50 mg 02/24/21 21:00 03/15/21 20:50 Topiramate 25 Mg Tablet PO 50 mg BEDTIME ANGELITA Administration Trazodone HCl 50 mg 02/27/21 15:26 03/15/21 20:51 Trazodone Hcl 50 Mg Tablet PO 50 mg BEDTIME PRN Administration Insomnia Allergies Allergies Allergy/AdvReac Type Severity Reaction Status Date / Time oxycodone [OXYCODONE] Allergy Severe SEIZURES Unverified 08/02/20 19:22 Assessment & Plan Assessment & Plan (1) Schizoaffective disorder, bipolar type: Status: Acute Code(s): F25.0 - Schizoaffective disorder, bipolar type Assessment and Plan: Continue current regime; no changes to treatment plan Declines SALAZAR Pt requesting discharge to a group home. Today, will accept [facility] assist and housing assist Discussed with pt this being not a stable safe plan. Mood lability with hx of arrest and 4 current restraining orders. Hx of med noncompliance in community. I have asked her to again reconsider. Will not discharge today and will review options being pursued on 03/18-which includes [facility] [employer] respite bed, group home ([facility] bed) Greater than 50% of the session was spent on counseling and/or coordination of care Reason for contiued inpatient stay Substantial Risk for: med/psych decompensation
[2021-03-16] MEDS: LORazepam 1 MG TABLET PO ×2 (15:00→19:29)
[2021-03-16 18:30] VITALS: BP 109/63; PULSE 100; TEMP 36.1
[2021-03-16] MEDS: Topiramate 25 MG TABLET 50 MG PO (20:10)
[2021-03-16] MEDS: QUEtiapine Fumarate 50 MG TABLET 300 MG PO (20:10)
[2021-03-16] MEDS: hydrOXYzine HCL 25 MG TABLET PO (20:11)
[2021-03-16] MEDS: traZODone HCL 50 MG TABLET PO (20:11)
[2021-03-17 06:00] VITALS: BP 105/60; PULSE 82; RESP 16; TEMP 36.4; O2SAT 99
[2021-03-17] MEDS: HaloperidoL 5 MG TABLET PO ×2 (08:00→20:49)
[2021-03-17] MEDS: Nicotine 21 MG PATCH.TD24 TRANSDERMA (08:00)
[2021-03-17] MEDS: QUEtiapine Fumarate 50 MG TABLET PO (08:00)
[2021-03-17 08:01] VITALS: BP 105/60; PULSE 82
[2021-03-17] MEDS: cloNIDine HCL 0.1 MG TABLET PO (08:01)
--- NOTE | 2021-03-17 09:33 | P.PNPSI_ITS ---
Subjective Subjective Date of Service: 03/17/21 Reason For Visit: Bipolar Disorder Interim History: Chart reviewed; case discussed with team. Vitals reviewed: grossly WNL pt was calm; she says she's good and asks if she can discharge today. [employer] inquired and pt said the plan is for her to discharge on Thursday, but would prefer to go today. However, pt accepted writers perspective that's best for her to continue with her treatment teams plan. Pt says she's feeling better then when first admitted, saying she feel[s] less anxiety. Pt denies medication side-effects. Staff reports patient is going to groups. Mental Status Exam Mental Status Exam Narrative: Appearance: Appropriate, casual dressed, hair colored Patient Orientation: Person, Place, Time Level of Consciousness: Alert Patient Behavior: calm; cooperative Mood Description: better Affect Description: flat Ability to Follow Directions: Good Speech: normal volume, rate, prosody Hallucinations: denies Thought Process: goal oriented, concrete Thought Content: paucity Judgement: impaired Diagnostics Vital Signs (24Hr): Vital Signs - 24 hr 03/16/21 18:30 03/17/21 06:00 03/17/21 08:01 Temperature 96.9 F 97.6 F Pulse Rate 100 82 82 Respiratory Rate 16 Blood Pressure 109/63 105/60 105/60 Pulse Oximetry 99 Body Mass Index 22.1 Medications Medications Current Medications Generic Name Dose Route Start Last Admin Trade Name Freq PRN Reason Stop Dose Admin Acetaminophen 650 mg 02/27/21 15:26 Acetaminophen 325 Mg Tablet PO Q6H PRN Headache/Pain Mild Scale (1-3) Al Hydroxide/Mg Hydroxide 30 ml 02/27/21 15:26 Magnesium Hydrox/Alum Hydrox 30 Ml Oral.Susp PO Q6H PRN Heartburn/Nausea Albuterol Sulfate 2 puff 02/24/21 08:30 Albuterol Sulfate 90 Mcg 8 Gm Inhaler INHALE Q4H PRN wheezing Clonidine HCl 0.1 mg 02/28/21 21:00 03/17/21 08:01 Clonidine Hcl 0.1 Mg Tablet PO 0.1 mg BID ANGELITA Administration Protocol Haloperidol 5 mg 02/28/21 15:20 03/12/21 13:15 Haloperidol 5 Mg Tablet PO 5 mg TID PRN Administration auditory perceptual alteration Haloperidol 5 mg 03/01/21 21:00 03/17/21 08:00 Haloperidol 5 Mg Tablet PO 5 mg BID ANGELITA Administration Hydroxyzine HCl 25 mg 02/27/21 15:26 03/16/21 20:11 Hydroxyzine Hcl 25 Mg Tablet PO 25 mg BEDTIME PRN Administration Anxiety Lorazepam 1 mg 03/03/21 19:18 03/16/21 19:29 Lorazepam 1 Mg Tablet PO 1 mg BID PRN Administration Anxiety Magnesium Hydroxide 30 ml 02/27/21 15:26 Milk Of Magnesia 30 Ml Oral.Susp PO DAILY PRN Constipation Multivitamins/Minerals 1 tab 03/02/21 09:00 03/17/21 08:01 Multivitamin With Minerals Tablet PO 1 tab DAILY ANGELITA Administration Nicotine 21 mg 03/11/21 16:30 03/17/21 08:00 Nicotine 21 Mg Patch.Td24 TRANSDERMA 21 mg DAILY ANGELITA Administration Nicotine Polacrilex 4 mg 03/11/21 16:23 Nicotine Polacrilex 2 Mg Gum BUCCAL Q2H PRN Nicotine Cravings Quetiapine Fumarate 300 mg 02/26/21 21:00 03/16/21 20:10 Quetiapine Fumarate 50 Mg Tablet PO 300 mg BEDTIME ANGELITA Administration Quetiapine Fumarate 50 mg 02/26/21 10:07 03/17/21 08:00 Quetiapine Fumarate 50 Mg Tablet PO 50 mg DAILY ANGELITA Administration Quetiapine Fumarate 50 mg 02/27/21 16:44 03/16/21 15:00 Quetiapine Fumarate 50 Mg Tablet PO 50 mg BID PRN Administration agitation Topiramate 50 mg 02/24/21 21:00 03/16/21 20:10 Topiramate 25 Mg Tablet PO 50 mg BEDTIME ANGELITA Administration Trazodone HCl 50 mg 02/27/21 15:26 03/16/21 20:11 Trazodone Hcl 50 Mg Tablet PO 50 mg BEDTIME PRN Administration Insomnia Allergies Allergies Allergy/AdvReac Type Severity Reaction Status Date / Time oxycodone [OXYCODONE] Allergy Severe SEIZURES Unverified 08/02/20 19:22 Assessment & Plan Assessment & Plan (1) Schizoaffective disorder, bipolar type: Status: Acute Code(s): F25.0 - Schizoaffective disorder, bipolar type Assessment and Plan: Continue current regime; no changes to treatment plan Declines SALAZAR Pt requesting discharge to a group home; will accept H assist and housing assist Discussed with pt this being not a stable safe plan. Mood lability with hx of arrest and 4 current restraining orders. Hx of med noncompliance in community. I have asked her to again reconsider. Will not discharge today and will review options being pursued on 03/18-which includes [facility] respite bed, group home ([facility] bed) Greater than 50% of the session was spent on counseling and/or coordination of care Reason for contiued inpatient stay Substantial Risk for: med/psych decompensation
[2021-03-17 18:00] VITALS: BP 102/58; PULSE 100; TEMP 37
[2021-03-17] MEDS: QUEtiapine Fumarate 50 MG TABLET 300 MG PO (20:48)
[2021-03-17] MEDS: Topiramate 25 MG TABLET 50 MG PO (20:49)
[2021-03-17] MEDS: traZODone HCL 50 MG TABLET PO (21:04)
[2021-03-17] MEDS: hydrOXYzine HCL 25 MG TABLET PO (21:04)
[2021-03-18 07:05] VITALS: BP 86/54; PULSE 70; RESP 16; TEMP 36.8; O2SAT 98
[2021-03-18] MEDS: HaloperidoL 5 MG TABLET PO ×2 (09:21→20:10)
[2021-03-18] MEDS: QUEtiapine Fumarate 50 MG TABLET PO ×2 (09:22→16:58)
[2021-03-18] MEDS: Nicotine 21 MG PATCH.TD24 TRANSDERMA (09:22)
[2021-03-18 09:29] VITALS: BP 98/52; PULSE 95
[2021-03-18] MEDS: cloNIDine HCL 0.1 MG TABLET PO (09:29)
[2021-03-18 09:32] VITALS: BP 98/52; PULSE 95; RESP 16; TEMP 36.3; O2SAT 98
[2021-03-18] MEDS: LORazepam 1 MG TABLET PO ×2 (16:58→21:49)
--- NOTE | 2021-03-18 17:00 | P.PNPSI_ITS ---
Subjective Subjective Date of Service: 03/18/21 Reason For Visit: Bipolar Disorder Subjective Notes: Conditional Voluntary Interim History: Pt awaiting [facility] to assist with housing. Currently respite options with [facility] are being explored. Pt is anxious to leave, yet understands that an appropriate supportive placement is going to be helpful in her moving forward vs needing re-admission. She is reported to have been in behavioral control over the weekend and mood has been calm, without psychotic thought process Medication Compliance: Yes Side effects from medications: No Attending Groups: No Review of Systems Review of Systems Yes all other systems are reviewed and are negative Psychiatric: Reports no additional psychiatric complaints Mental Status Exam Mental Status Exam Patient Appearance: Appropriate Patient Orientation: Person, Place, Time and Situation Level of Consciousness: Alert Patient Behavior: Appropriate, Guarded, Talkative and Cooperative Mood Description: Withdrawn, Anxious and Apprehensive Affect Description: Anxious and Apprehensive Patient Cognition Impaired: No Ability to Follow Directions: Good Speech Pattern: Spontaneous Speech Memory Description: Episodic Impaired Hallucinations: None (denies) Delusions: Not Present (no symptoms presented) Thought Process: Distracted and Goal Oriented Thought Content: positive for Goal Oriented, positive for Suicidal Ideation (denies) and positive for Homicidal Ideation (denies) Depressive Symptoms: Diff. Making Decisions (back and forth with discharge planning and what she wants to do. Able to keep on course w/support.) Judgement: Good Diagnostics Vital Signs (24Hr): Vital Signs - 24 hr 03/17/21 18:00 03/18/21 07:05 03/18/21 09:29 Temperature 98.6 F 98.2 F Pulse Rate 100 70 95 Respiratory Rate 16 Blood Pressure 102/58 L 86/54 L 98/52 L Pulse Oximetry 98 03/18/21 09:32 Temperature 97.3 F Pulse Rate 95 Respiratory Rate 16 Blood Pressure 98/52 L Pulse Oximetry 98 Body Mass Index 22.1 Medications Medications Current Medications Generic Name Dose Route Start Last Admin Trade Name Freq PRN Reason Stop Dose Admin Acetaminophen 650 mg 02/27/21 15:26 Acetaminophen 325 Mg Tablet PO Q6H PRN Headache/Pain Mild Scale (1-3) Al Hydroxide/Mg Hydroxide 30 ml 02/27/21 15:26 Magnesium Hydrox/Alum Hydrox 30 Ml Oral.Susp PO Q6H PRN Heartburn/Nausea Albuterol Sulfate 2 puff 02/24/21 08:30 Albuterol Sulfate 90 Mcg 8 Gm Inhaler INHALE Q4H PRN wheezing Clonidine HCl 0.1 mg 02/28/21 21:00 03/18/21 09:29 Clonidine Hcl 0.1 Mg Tablet PO 0.1 mg BID ANGELITA Administration Protocol Haloperidol 5 mg 02/28/21 15:20 03/12/21 13:15 Haloperidol 5 Mg Tablet PO 5 mg TID PRN Administration auditory perceptual alteration Haloperidol 5 mg 03/01/21 21:00 03/18/21 09:21 Haloperidol 5 Mg Tablet PO 5 mg BID ANGELITA Administration Hydroxyzine HCl 25 mg 02/27/21 15:26 03/17/21 21:04 Hydroxyzine Hcl 25 Mg Tablet PO 25 mg BEDTIME PRN Administration Anxiety Lorazepam 1 mg 03/03/21 19:18 03/18/21 16:58 Lorazepam 1 Mg Tablet PO 1 mg BID PRN Administration Anxiety Magnesium Hydroxide 30 ml 02/27/21 15:26 Milk Of Magnesia 30 Ml Oral.Susp PO DAILY PRN Constipation Multivitamins/Minerals 1 tab 03/02/21 09:00 03/18/21 09:22 Multivitamin With Minerals Tablet PO 1 tab DAILY ANGELITA Administration Nicotine 21 mg 03/11/21 16:30 03/18/21 09:22 Nicotine 21 Mg Patch.Td24 TRANSDERMA 21 mg DAILY ANGELITA Administration Nicotine Polacrilex 4 mg 03/11/21 16:23 Nicotine Polacrilex 2 Mg Gum BUCCAL Q2H PRN Nicotine Cravings Quetiapine Fumarate 300 mg 02/26/21 21:00 03/17/21 20:48 Quetiapine Fumarate 50 Mg Tablet PO 300 mg BEDTIME ANGELITA Administration Quetiapine Fumarate 50 mg 02/26/21 10:07 03/18/21 09:22 Quetiapine Fumarate 50 Mg Tablet PO 50 mg DAILY ANGELITA Administration Quetiapine Fumarate 50 mg 02/27/21 16:44 03/18/21 16:58 Quetiapine Fumarate 50 Mg Tablet PO 50 mg BID PRN Administration agitation Topiramate 50 mg 02/24/21 21:00 03/17/21 20:49 Topiramate 25 Mg Tablet PO 50 mg BEDTIME ANGELITA Administration Trazodone HCl 50 mg 02/27/21 15:26 03/17/21 21:04 Trazodone Hcl 50 Mg Tablet PO 50 mg BEDTIME PRN Administration Insomnia Allergies Allergies Allergy/AdvReac Type Severity Reaction Status Date / Time oxycodone [OXYCODONE] Allergy Severe SEIZURES Unverified 08/02/20 19:22 Assessment & Plan Assessment & Plan (1) Schizoaffective disorder, bipolar type: Status: Acute Code(s): F25.0 - Schizoaffective disorder, bipolar type Assessment and Plan: Continue current regime; no changes to treatment plan Declines SALAZAR Pt requesting discharge to a half-way; will accept H assist and housing assist Discussed with pt needing a plan with supports. Mood lability with hx of arrest and 4 current restraining orders. Hx of med noncompliance in community. We await to hear of respite opportunity in [place]. Greater than 50% of the session was spent on counseling and/or coordination of care Reason for contiued inpatient stay Substantial Risk for: harm to self, harm to others, inability to function and rapid decompensation
[2021-03-18 17:20] VITALS: BP 121/83; PULSE 92; TEMP 36.9
[2021-03-18] MEDS: Topiramate 25 MG TABLET 50 MG PO (20:10)
[2021-03-18] MEDS: QUEtiapine Fumarate 50 MG TABLET 300 MG PO (20:10)
[2021-03-18] MEDS: traZODone HCL 50 MG TABLET PO (20:15)
[2021-03-18] MEDS: hydrOXYzine HCL 25 MG TABLET PO (20:15)
[2021-03-19] MEDS: HaloperidoL 5 MG TABLET PO ×2 (01:52→09:01)
[2021-03-19] MEDS: LORazepam 1 MG TABLET PO (01:52)
[2021-03-19 08:11] LABS: MANUAL DIFF FLAG NO
[2021-03-19 08:14] LABS: Basophils Percent Auto 0.3 % (0-2); Eosinophils Absolute Auto 0.2 X10*3/uL (0.0-0.4); Eosinophils Percent Auto 2.5 % (0-4); Hematocrit 43.9 % (37-47); Hemoglobin 14.3 g/dl (12.0-16.0); Imm Gran Abs Auto 0.01 X10*3/uL (0.00-0.03); Imm Gran Pct Auto 0.1 % (0.0-0.4); Lymphocytes Absolute Auto 3.4 X10*3/uL (1.2-4.9); Lymphocytes Percent Auto 50.4 % (20-40); Mean Corpuscular HGB Conc 32.6 g/dl (31.0-35.0); Mean Corpuscular Hemoglobin 30.4 pg (27.0-33.0); Mean Corpuscular Volume 93.2 fL (80-98); Mean Platelet Volume 10.3 fL (9.4-12.3); Monocytes Absolute Auto 0.3 X10*3/uL (0.1-1.2); Monocytes Percent Auto 4.9 % (2-11); Neutrophils Absolute Auto 2.8 X10*3/uL (2.0-8.3); Neutrophils Percent Auto 41.8 % (45-73); Platelet Count 245 X10*3/uL (160-400); Red Blood Count 4.71 X10*6/uL (4.20-5.50); Red Cell Distribution Width 11.9 % (11.0-16.0); White Blood Count 6.7 X10*3/uL (4.8-10.8)
[2021-03-19 08:38] LABS: Alanine Aminotransferase 7 U/L (0-31); Albumin Level 4.4 g/dL (3.5-5.0); Alkaline Phosphatase 68 U/L (39-117); Anion Gap 12 (12-20); Aspartate Amino Transferase 11 U/L (5-31); Bilirubin Total 0.4 mg/dL (0.0-1.0); Blood Urea Nitrogen 12 mg/dL (9-16); Calcium 9.6 mg/dL (8.4-10.2); Carbon Dioxide 26 mmol/L (22-29); Chloride 107 mmol/L (96-108); Creatinine Clr Calc Pharmacy 67.2; Estimated Glomerular Filt Rate 57; Glucose Random 86 mg/dL (60-115); Potassium 3.9 mmol/L (3.3-5.1); Sodium 141 mmol/L (135-145); Total Protein 6.8 g/dL (6.5-8.0)
[2021-03-19] MEDS: Nicotine 21 MG PATCH.TD24 TRANSDERMA (09:02)
[2021-03-19] MEDS: QUEtiapine Fumarate 50 MG TABLET PO (09:02)
[2021-03-19 09:11] VITALS: BP 96/57; PULSE 110
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
== END 2021-03-19 13:44 | disposition home or self-care (01) | DRG 750 ==
LOC: HO.ED 06:17 → HO.PM5 02-27 14:24
PROVIDERS: Student in an Organized Health Care Education/Training Program; Admitting Provider Psychiatry & Neurology Psychiatry; Emergency Provider Emergency Medicine Emergency Medical Services; Visit Provider Clinical Nurse Specialist Psychiatric/Mental Health, Adult
DX: F25.0 Schizoaffective disorder, bipolar type (principal); Z91.14 Patient's other noncompliance with medication regimen; R00.0 Tachycardia, unspecified; Z20.822 Contact with and (suspected) exposure to COVID-19; Z88.5 Allergy status to narcotic agent; Z79.899 Other long term (current) drug therapy
CPT/HCPCS: 36415; 80053; 80061; 80307; 81001; 81025; 82607; 82746; 83036; 84439; 84443; 85025; 87635; 93005; 99285